=== PATIENT | female | born 1950 | race Caucasian/White ===

== ENCOUNTER → 2016-07-27 17:12 | Outpatient (CLI) | payer MEDICAID ==
[2016-04-28 10:48] VITALS: BMI 43.4
[~2016-07-27 17:12] MED LIST: ACTOS45 MG PO; ANTIVERT12.5 MG PO; CELEXA20 MG PO; DOXYCYCLINE HY100 M2 PO; FIORICET-COD 51 EACH PO; HYDROCODON-ACE1 EAC7 PO; HYDROCODONE-APA1 TAB PO; HYZAAR 50-12.51 TAB PO; JANUVIA100 MG PO; KEPPRA500 MG PO; LIPITOR20 MG PO; MOBIC7.5 MG PO; NEURONTIN 300300 MG PO; OMEPRAZOLE40 MG PO; ROBAXIN-750750 MG PO; TYLENOL W/CODEI1 TAB PO
== END | disposition home or self-care (01) ==
LOC: D.MAMMO 14:00
DX: N63 Unspecified lump in breast (principal)

== ENCOUNTER → 2016-08-03 09:15 | Outpatient (CLI) | payer MEDICAID ==
[2016-04-28 10:48] VITALS: BMI 43.4
== END | disposition home or self-care (01) ==
LOC: D.US 09:15
DX: N63 Unspecified lump in breast (principal)

== ENCOUNTER 2016-08-24 09:47 | Day surgery (SDC) | payer MEDICAID ==
[~2016-08-24] VITALS: Ht 157.5 cm; Wt 112.9 kg
[~2016-08-24 09:47] MED LIST changes: -DOXYCYCLINE HY100 M2 PO; -HYDROCODON-ACE1 EAC7 PO; -MOBIC7.5 MG PO
[2016-08-24 10:46] LABS: BASOPHILS 0.3 % (0.0-2.0); EOSINOPHILS 1.4 % (0-7); HEMATOCRIT 37.5 % (36.0-48.0); IMMATURE GRANULOCYTES 0.4 % (0-5); LYMPHOCYTES 41.6 % (15-50); MCH 28.8 pg (26.0-34.0); MCV 90.1 fL (80.0-100.0); MEAN PLATELET VOLUME 10.9 fL (7.4-10.4); MONOCYTES 5.1 % (2-11); NEUTROPHILS 51.2 % (40-80); PLATELET COUNT 278 10x3/uL (130-400); RBC 4.16 10x6/uL (4.00-5.40); RDW 13.4 % (11.5-14.5); WBC 12.4 10x3/uL (4.8-10.8)
[2016-08-24 10:51] LABS: CALC OSMOLALITY 281 mosm/kg (275-300); CALCIUM 8.7 mg/dL (8.5-10.1); CARBON DIOXIDE 33.1 mmol/L (21.0-32.0); CHLORIDE - SERUM 100 mmol/L (98-107); CREATININE - SERUM 0.8 mg/dL (0.6-1.3); GLUCOSE 173 mg/dL (74-106); SODIUM 137 mmol/L (136-145); UREA NITROGEN 24 mg/dL (7-18); eGFR NON AFRICAN AMERICAN 77 mL/min (90-120)
[2016-08-24] MEDS ORDERED: MOBIC7.5 MG PO (10:54)
[2016-08-24 10:57] VITALS: BP 142/72; Ht 157.5 cm; Wt 112.9 kg
[2016-08-24 10:57] LABS: INR 0.99 (0.85-1.17)
[2016-08-24] MEDS ORDERED: HYDROCODON-ACE1 EAC7 PO (12:57)
[2016-08-24] MEDS ORDERED: DOXYCYCLINE HY100 M2 PO (12:57)
--- NOTE | 2016-08-24 21:25 | OP ---
PATIENT NAME: DEEPTI KILGORE MEDICAL RECORD: [id number] :54 LOCATION:D.OPS ADMISSION DATE: SURGEON: MANDY DELANEY MD DATE OF OPERATION: 08/24/2016 SURGEON: Mandy Delaney MD PREOPERATIVE DIAGNOSIS: Left breast infiltrating ductal carcinoma. POSTOPERATIVE DIAGNOSIS: Left breast infiltrating ductal carcinoma. PROCEDURES PERFORMED: 1. Insertion of left subclavian tunneled PowerPort with subcutaneous port. 2. Immediate interpretation of fluoroscopy. ANESTHESIA: Total intravenous anesthesia. COMPLICATIONS: None. SPECIMENS: None. Case was clean. ESTIMATED BLOOD LOSS: 20 cc. OPERATIVE COURSE: After consent was obtained, the patient was taken to the operating room and placed in the supine position ____ total intravenous anesthesia was given. A timeout was taken to confirm the correct patient and procedure. The left breast, chest and neck were prepped and draped in typical sterile fashion. External landmarks were identified. A 30 cc of local anesthetic were injected in the left chest wall. The left subclavian vein was cannulated on the first pass. Under direct fluoroscopy, the was advanced to the atriocaval junction. The needle was removed. A stab incision was made with 11-blade scalpel. At this time, the chest wall incision was made with a 15 blade scalpel. Dissection continued to the level of the pectoralis fascia using electrocautery and blunt dissection. Once the pectoralis fascia was identified again, 10 cc of local anesthetic was administered. The port was tunneled from the skin incision to the needle stick site. At this time, the dilator and breakaway sheath were passed over the wire in standard Seldinger fashion under fluoroscopy. The wire and dilator were removed. The catheter was advanced to the breakaway sheath and advanced to the atriocaval junction under fluoroscopy. At this time, the catheter was secured to the PowerPort device. The port was fixated to the pectoralis fascia using interrupted 2-0 Prolene suture. The port was accessed, blood aspirated, it was then flushed with 30 cc of normal saline mixed with 5000 units of heparin. The wound was then copiously irrigated and suctioned. Subcutaneous tissue was closed with 3-0 Vicryl suture. The skin was closed with 4-0 Monocryl, Mastisol and Steri-Strips. The port was then accessed with the 1-1/2-inch Hand needle through the skin. Blood was aspirated, the port was then flushed. The sterile Tegaderm were placed over the access device and the incision. At the end of the case, all needle and instrument counts were correct. No complications occurred. The patient was transferred to the recovery room in satisfactory condition. TRANSINT:[id number] Voice Confirmation ID: [id number] DOCUMENT ID: [id number] OPERATIVE REPORT [id number] DEEPTI KILGORE,MANDY Oscar MD at 2125 CC: [id number] DICTATION DATE: 08/24/16 1254 GENERATING PLANT SUPERINTENDENT: 08/24/16 2020 [facility] 08/24/16 [id number] [place] [address]
== END 2016-08-24 14:20 | disposition home or self-care (01) ==
LOC: D.OPS 09:47
PROVIDERS: Anesthesiology
DX: C50.912 Malignant neoplasm of unspecified site of left female breast (principal)

== ENCOUNTER → 2016-09-01 08:57 | Outpatient (CLI) | payer MEDICAID ==
[2016-08-24 10:57] VITALS: BMI 45.6
[~2016-09-01 08:57] MED LIST changes: +DOXYCYCLINE HY100 M2 PO; +HYDROCODON-ACE1 EAC7 PO; +MOBIC7.5 MG PO
== END | disposition home or self-care (01) ==
LOC: D.NM 08:57
DX: C50.912 Malignant neoplasm of unspecified site of left female breast (principal)

== ENCOUNTER 2016-09-28 07:02 | Day surgery (SDC) | payer MEDICAID ==
[2016-09-27 15:11] LABS: BASOPHILS 0.2 % (0.0-2.0); EOSINOPHILS 2.3 % (0-7); HEMATOCRIT 37.7 % (36.0-48.0); HEMOGLOBIN 11.9 g/dL (12-16); IMMATURE GRANULOCYTES 0.4 % (0-5); LYMPHOCYTES 38.3 % (15-50); MCHC 31.6 g/dL (31.0-37.0); MCV 91.7 fL (80.0-100.0); MEAN PLATELET VOLUME 11.6 fL (7.4-10.4); NEUTROPHILS 52.8 % (40-80); PLATELET COUNT 269 10x3/uL (130-400); RBC 4.11 10x6/uL (4.00-5.40); RDW 13.7 % (11.5-14.5); WBC 10.2 10x3/uL (4.8-10.8)
[2016-09-27 15:24] LABS: CALC OSMOLALITY 280 mosm/kg (275-300); CALCIUM 8.5 mg/dL (8.5-10.1); CARBON DIOXIDE 32.3 mmol/L (21.0-32.0); CHLORIDE - SERUM 101 mmol/L (98-107); CREATININE - SERUM 0.7 mg/dL (0.6-1.3); GLUCOSE 151 mg/dL (74-106); POTASSIUM - SERUM 4.7 mmol/L (3.5-5.1); SODIUM 138 mmol/L (136-145); UREA NITROGEN 19 mg/dL (7-18); eGFR NON AFRICAN AMERICAN 89 mL/min (90-120)
[~2016-09-28] VITALS: Ht 157.5 cm; Wt 111.4 kg
[~2016-09-28 07:02] MED LIST changes: +ACTOS30 MG PO; -ACTOS45 MG PO; +LIPITOR10 MG PO; -LIPITOR20 MG PO
[2016-09-28 07:42] VITALS: BP 147/88; BMI 44.9
--- NOTE | 2016-09-28 08:12 | NUR ---
0812 CALLED DALIA RECEIVED SMALL AMT OF BLOOD FROM IV TOLD HER WASNT SURE IF IT WAS ENOUGH BLOOD OE HENOLYZED AND MAY NEED TO DRAW BLOOD.
--- NOTE | 2016-09-28 14:02 | NUR ---
REPORT GIVEN TO JEREMIAH LADD RN WHO IS TAKING OVER CASE.
[2016-09-28] MEDS ORDERED: HYDROCODON-ACE1 EAC7 PO (14:28)
[2016-09-28 16:21] VITALS: BP 129/54; Ht 157.5 cm; Wt 111.4 kg
--- NOTE | 2016-09-28 16:43 | NUR ---
pt recieved from pacu per bed. oxygen on room air at 88%-oxygen at 2L per nc with sat of 94-95%. lungs clear bilat. nola wrap noted to chest with 4x4s underneath on left chest. box alarm applied due to fall risk score. call light in reach. family at bedside.
--- NOTE | 2016-09-28 19:00 | NUR ---
BEDSIDE REPORT RECEIVED AND CARE OF PT ASSUMED. PT LYING IN SEMI VALENZUELA'S POSITION WITH EYES CLOSED AND UNLABORED BREATHING. O2 IN USE AT 4L VIA NC AND SPO2 98% AT THIS TIME. IV IN RIGHT FA PATENT WITH NS INFUSING AT 75 ML / HR. WILL MONITOR CLOSEY FOR NEEDS.
[2016-09-28 20:00] VITALS: BP 141/71
--- NOTE | 2016-09-28 21:08 | NUR ---
HS MEDICATIONS GIVEN. PT STILL SLEEPY, BUT AWOKE TO VOICE AND SWALLOWED MEDICATIONS WITH SIPS OF WATER WITHOUT DIFFICULTY. WILL CONTINUE TO MONITOR FOR NEEDS. CALL LIGHT WITHIN REACH.
--- NOTE | 2016-09-28 21:50 | OP ---
PATIENT NAME: DEEPTI KILGORE MEDICAL RECORD: [id number] :54 LOCATION:D.MS [facility] ADMISSION DATE: SURGEON: MANDY DUMAS MD DATE OF OPERATION: 09/28/2016 SURGEON: Mandy Dumas MD. PREOPERATIVE DIAGNOSIS: Infiltrating ductal carcinoma of the left breast. POSTOPERATIVE DIAGNOSIS: Infiltrating ductal carcinoma of the left breast. PROCEDURES PERFORMED: 1. Left breast partial lumpectomy. 2. [place] lymph node biopsy. SPECIMENS: Left breast lumpectomy specimen size 6 cm in length, ____ cm in width, 10 cm in depth. SPECIMENS: Two additional inferior margin of left breast 4 x 4 x 4 and three left sentinel lymph node excisional biopsy. ANESTHESIA: General. COMPLICATIONS: None. ESTIMATED BLOOD LOSS: 70 cc. Case was clean. OPERATIVE COURSE: The patient was brought in to the hospital early this morning, sterotactic wire-guided placement was performed. The patient was also given preoperative lymphoscintigraphy. Thereafter, consent was obtained, the patient was taken to the operating room and placed in a supine position on the operating table. Next, general anesthesia was given via endotracheal intubation. Next, a timeout was taken to confirm the correct patient and procedure. The left breast and axilla were prepped and draped in typical sterile fashion. The needle was identified in the left upper outer quadrant; it is approximately in 2 o'clock position. Local anesthetic was injected. Lymphazurin blue dye was injected in the subareolar region. An elliptical incision was made around the guidewire approximately 6 cm in length, 1 cm in width and dissection continued with combination of electrocautery and sharp scissor dissection taking the grossly abnormal tissue as well as the tissue encompassing in the wire from the left breast. The specimen was removed and sent for mammographic confirmation. Additional gross disease was noted of what was the inferior margin. Again, dissection was performed, sharp scissor dissection and this was sent for again mammographic confirmation. A third specimen was sent for permanent pathology. The wound was copiously irrigated and suctioned. Pressure dressing was applied while we waited on mammographic confirmation. Local anesthetic was injected to the left axilla and standard incision was made. Dissection continued with Metzenbaum scissors. Self-retaining retractors were placed. The sentinel lymph node cluster was identified visually with Blue dye as well as confirmation with the radioactive Jerry counter. The 2 nodes that were identified were circumferentially dissected and sent for permanent pathology. The axilla was marked with clips at the site of the lymph node biopsy. The axilla was copiously irrigated and OPERATIVE REPORT [id number] MAGUIDEEPTI ERIC suctioned. Careful attention was paid to hemostasis, which was obtained with a combination of electrocautery and silk sutures. Rashel was applied. The deep subQ was closed with 3-0 Vicryl. The superficial subQ was closed with 3-0 Vicryl. The skin was closed with 4-0 Stratafix, Mastisol and Steri-Strips. At this time, we received mammographic confirmation of the left breast lumpectomy specimen. The pressure dressing was removed. The wound was copiously irrigated and suctioned. Hemostasis was obtained with electrocautery as well as Vicryl suture. The area of dissection was marked with again a 5-mm clip groover and striper operator. Rashel was applied. The wound was closed, deep subcutaneous layer was closed with 3-0 Vicryl sutures, superficial tissue was closed with 3-0 Vicryl suture. The skin was closed with 4-0 Stratafix, Mastisol and Steri-Strips. At the end of the case, a pressure dressing was applied to the left breast and axilla as well as an David wrap. At the end of the case, all needle and instrument counts were correct. No complications occurred. The patient was extubated and transferred to the PACU in stable condition. TRANSINT:[id number] Voice Confirmation ID: [id number] DOCUMENT ID: [id number] MANDY DUMAS MD at 2150 CC: [id number] DICTATION DATE: 09/28/161426 ULTRASOUND TECHNOLOGIST SONOGRAPHER: 09/28/162113 [facility] [address] [place] [address]
--- NOTE | 2016-09-28 22:30 | NUR ---
PT VOIDED 300 ML OF YELLOW URINE. WALKED TO RESTROOM WITH STAND-BY ASSIST. WILL CONTINUE TO MONITOR FOR NEEDS.
[2016-09-29] VITALS: BP 141/71
--- NOTE | 2016-09-29 00:40 | NUR ---
PT C/O PAIN AT LEVEL 8/10 IN LEFT CHEST AND BACK AREA. GAVE NORCO 5/325 X2 PO PER PRN ORDER. WILL MONITOR FOR EFFECTIVENESS. SIDE RAILS UP X2 FOR SAFETY. FAMILY MEMBER IS AT BEDSIDE.
[2016-09-29 04:00] VITALS: BP 126/71
[2016-09-29 07:50] VITALS: BP 136/70
--- NOTE | 2016-09-29 10:56 | NUR ---
PT SEEN EARILER AND ASSESSED. NO COMPLAINTS AT PRESENT DUE TO PAIN PILLS GIVEN AT 0545. DRESSING NOTED TO LEFT CHEST CLEAN DRY AND INTACT. CHEST WRAPPED WITH NORMAN WRAP. OXYGEN AT 2L NC WITH SAT OF 97%-TURNED OFF TO ARRANGE FOR DISCHARGE LATER TODAY. WILL MONITOR CLOSELY. LEGS BILAT LOWER WITH 1+ EDEMA-PT STATES THIS IS NORMAL FOR HER. CALL LIGHT IN REACH
== END 2016-09-29 14:59 | disposition home or self-care (01) ==
LOC: D.OPS 07:02 → D.MS 07:02 → D.PAN 07:30 → D.NM 07:30 → D.MS 15:54 → D.OPS 09-29 14:59
PROVIDERS: Anesthesiology
DX: C50.412 Malignant neoplasm of upper-outer quadrant of left female breast (principal); C77.3 Secondary and unspecified malignant neoplasm of axilla and upper limb lymph nodes; Z17.0 Estrogen receptor positive status [ER+]

== ENCOUNTER 2016-10-19 05:16 | Inpatient (IN) | payer MEDICAID ==
[2016-10-18 11:34] LABS: BASOPHILS 0.1 % (0-2); EOSINOPHILS 1.3 % (0-7); HEMOGLOBIN 12.4 g/dL (12-16); IMMATURE GRANULOCYTES 0.5 % (0-5); LYMPHOCYTES 32.5 % (15-50); MCH 29.6 pg (26.0-34.0); MCHC 32.6 g/dL (31.0-37.0); MCV 90.7 fL (80.0-100.0); MEAN PLATELET VOLUME 10.4 fL (7.4-10.4); NEUTROPHILS 58.6 % (40-80); PLATELET COUNT 295 10x3/uL (130-400); RBC 4.19 10x6/uL (4.00-5.40); RDW 13.6 % (11.5-14.5); WBC 14.6 10x3/uL (4.8-10.8)
[2016-10-18 11:51] LABS: INR 0.95 (0.85-1.17); PROTIME 12.5 SECONDS (11.6-15.0)
[2016-10-18 11:55] LABS: ANION GAP 10.8 mmol/L (8-16); CALCIUM 8.8 mg/dL (8.5-10.1); CARBON DIOXIDE 30.2 mmol/L (21.0-32.0); CREATININE - SERUM 0.9 mg/dL (0.6-1.3)
[2016-10-18 12:26] LABS: APTT 20.4 SECONDS (22.8-39.4)
[~2016-10-19] VITALS: Ht 154.9 cm; Wt 113.6 kg
[~2016-10-19 05:16] MED LIST changes: -ACTOS30 MG PO; +ACTOS45 MG PO; -LIPITOR10 MG PO; +LIPITOR20 MG PO
[2016-10-19 09:03] VITALS: BMI 49.0
--- NOTE | 2016-10-19 14:11 | NUR ---
1333: UNABLE TO REACH FAMILY EXT [phone] NO ANSWER
[2016-10-19 15:53] VITALS: BP 117/70
[2016-10-19 19:42] VITALS: BP 100/56; Ht 154.9 cm; Wt 113.6 kg
[2016-10-19 20:02] VITALS: BP 100/56
--- NOTE | 2016-10-19 21:56 | NUR ---
REC'D PATIENT LYING IN BED. ALERT AND ORIENTED X4. DENIED PAIN AT THIS TIME. DENIED FURTHER NEEDS AT THIS TIME. WILL ADMISTER MEDS PRESCRIBED. WILL CONT TO MONITOR. NO DISTRESS NOTED. BED LOW, LOCKED, CALL LIGHT IN REACH.
--- NOTE | 2016-10-19 22:28 | NUR ---
PATIENT RESTING IN BED WITH EYES CLOSED. RR EVEN AND UNLABORED. 02 @ 2L VIA NC. 0 S/S OF DISTRESS. HOB 20 DEGREES. AAOX4. STATES PAIN IS A 2/10. DRESSING TO LEFT CHEST CDI. SCD'S ON. SRX2. BED LOW. CALL LIGHT WITHIN REACH.
[2016-10-19 23:48] VITALS: BP 109/67
--- NOTE | 2016-10-20 00:34 | NUR ---
PATIENT IS RESTING. NO DISTRESS NOTED. SON IS AT BEDSIDE.PT IS REQUESTING SOMETHING FOR PAIN. WILL ADMINISTER MEDS PRESCRIBED. INSTRUCTED TO CALL IF NEEDED ANYTHING. BED LOW, LOCKED, CALL LIGHT IN REACH.
[2016-10-20 04:00] VITALS: BP 114/63
[2016-10-20 04:03] VITALS: BP 114/63
[2016-10-20 05:35] LABS: BASOPHILS 0.2 % (0-2); HEMATOCRIT 33.8 % (36.0-48.0); HEMOGLOBIN 10.2 g/dL (12-16); IMMATURE GRANULOCYTES 0.3 % (0-5); LYMPHOCYTES 31.8 % (15-50); MCH 28.2 pg (26.0-34.0); MCHC 30.2 g/dL (31.0-37.0); MEAN PLATELET VOLUME 10.4 fL (7.4-10.4); MONOCYTES 6.9 % (2-11); NEUTROPHILS 59.8 % (40-80); PLATELET COUNT 288 10x3/uL (130-400); RBC 3.62 10x6/uL (4.00-5.40); RDW 13.6 % (11.5-14.5)
[2016-10-20 05:41] LABS: MCV 93.4 fL (80.0-100.0); WBC 10.5 10x3/uL (4.8-10.8)
[2016-10-20 06:02] LABS: CALC OSMOLALITY 284 mosm/kg (275-300); CALCIUM 8.4 mg/dL (8.5-10.1); CARBON DIOXIDE 33.1 mmol/L (21.0-32.0); CHLORIDE - SERUM 103 mmol/L (98-107); CREATININE - SERUM 0.8 mg/dL (0.6-1.3); GLUCOSE 213 mg/dL (74-106); MAGNESIUM - SERUM 2.1 mg/dL (1.8-2.4); POTASSIUM - SERUM 4.2 mmol/L (3.5-5.1); SODIUM 138 mmol/L (136-145); UREA NITROGEN 21 mg/dL (7-18); eGFR NON AFRICAN AMERICAN 76 mL/min (90-120)
--- NOTE | 2016-10-20 06:08 | NUR ---
PATIENT IS RESTING IN BED. NO DISTRESS NOTED. COULD NOT DRAW BLOOD FROM PORT SITE TODAY. PORT SITE IS FLUSHING WITH OUT A PROBLEM. DENIED ANY FURTHER NEEDS INTRUCTED TO CALL IF NEEDED ANYTHING. SON IS AT BEDSIDE. BED LOW, LOCKED, CALL LIGHT IN REACH.
--- NOTE | 2016-10-20 07:30 | NUR ---
AWAKE AND ALERT. C/O PAIN TO PORT SITE AND LEFT BREAST. REQUESTED AND GIVNE 2MG MORPHHINE SLOW IVP FOR SAME. WILL MONITOR.
[2016-10-20 08:21] VITALS: BP 127/59
--- NOTE | 2016-10-20 08:22 | OP ---
PATIENT NAME: DEEPTI KILGORE MEDICAL RECORD: [id number] :54 LOCATION:D.MS [facility] ADMISSION DATE:10/19/16 SURGEON: MANDY DELANEY MD DATE OF OPERATION: 10/19/2016 SURGEON: Mandy Delaney MD. PREOPERATIVE DIAGNOSES: 1. Infiltrating malignant neoplasm of the left breast. 2. Left breast subcutaneous abscess with cellulitis. POSTOPERATIVE DIAGNOSES: 1. Infiltrating malignant neoplasm of the left breast. 2. Left breast subcutaneous abscess with cellulitis. PROCEDURE PERFORMED: 1. Incision and drainage of left breast abscess. 2. Removal of left subclavian PowerPort. 3. Placement of a right subclavian PowerPort. 4. Immediate interpretation of fluoroscopy. ANESTHESIA: General. COMPLICATIONS: None. SPECIMENS: None. Case was grossly contaminated. ESTIMATED BLOOD LOSS: 20 cc. OPERATIVE COURSE: After consent was obtained, the patient was taken to the operating room and placed in the supine position on the operating table. Next, general anesthesia was given via endotracheal intubation after a timeout was performed to confirm the correct patient and procedure. Thereafter, the left and right chest were prepped and draped in the typical sterile fashion. Local anesthetic was administered. The patient's previous left breast lumpectomy site felt mildly fluctuant. The incision was incised and approximately 150 cc of rodriguez purulent material were expressed from the wound. Anaerobic and aerobic cultures were sent at this time. The wound was then copiously irrigated and suctioned. Repeat irrigation and suction was performed with hydrogen peroxide. The wound was then packed with Kerlix soaked in Betadine and hydrogen peroxide. Previous incision over the left subclavian PowerPort was incised and administered local anesthetic. Dissection continued on the level of the port using electrocautery. The port was identified. Previous Prolene sutures were cut. The port and the catheter were removed in its entirety. The wound was copiously irrigated and suctioned. Again, it was packed with Kerlix soaked in peroxide and Betadine. The wounds were covered with sterile gauze dressings. All dressings were removed. The patient's right chest was prepped and draped in typical sterile fashion. Local anesthetic was injected into the right anterior chest wall. The right subclavian vein was scanned on the first pass. Under fluoroscopic guidance, a guidewire was passed through the needle and into the atriocaval junction. The needle was removed. Skin incision was made with a 15 blade scalpel. The dilator and breakaway sheath were passed over the guidewire in standard Seldinger fashion, again under fluoroscopic guidance. A skin incision OPERATIVE REPORT [id number] DEEPTI KILGORE was then made in the right chest wall. Dissection continued to the level of the pectoralis fascia. Dissection continued to above the pectoralis fascia using electrocautery. A pocket was created for the port. The tunneler device was then used to tunnel the catheter from the skin incision to the needle stick site. The catheter was connected to the port. The port was secured to the anterior abdominal chest wall. Catheter was cut to length. The catheter was then passed through the dilator and guidewire removed. The catheter was passed through the breakaway sheath under fluoroscopic guidance at the atriocaval junction, at which time the breakaway sheath was removed. The port was then accessed. Blood was immediately aspirated. It was then flushed with 5000 units of heparin mixed with 30 cc of saline. The wound was irrigated and suctioned. Subcutaneous tissue was closed with 3-0 Vicryl suture and skin was closed with a 4-0 Stratafix, Mastisol and Steri-Strips. After the Mastisol and Steri-Strips were placed, a Tegaderm dressing was placed. The port was accessed. Blood was aspirated. It was then flushed with 20 cc of normal saline. At the end of the case, all needle and instrument counts were correct. No complications occurred. The patient ____ the port access. The patient was transferred to the PACU in stable condition. TRANSINT:[id number] Voice Confirmation ID: [id number] DOCUMENT ID: [id number] MANDY DELANEY MD at 0822 CC: [id number] DICTATION DATE: 10/19/16 1457 ALLERGIST/PEDIATRIC PULMONOLOGIST: 10/19/162235 [place] [address]
--- NOTE | 2016-10-20 10:18 | NUR ---
AWAKE AND ALERT. ORIENTED X3. NO C/O AT THIS TIME. LUNGS ARE CLEAR BILATERALLY, OCCASSIONAL DRY COUGH NOTED. SKIN IS INTACT WITHOUT REDNESS EXCEPT WOUNDS TO LEFT BREAST WHICH HAS A DRY INTACT DRESSING IN PLACE. PORT TO CENTER OF CHEST IS PATENT WITHOUT REDNESS AT INSERTION SITE. DENIES NEEDS.
[2016-10-20 12:46] VITALS: BP 128/76
[2016-10-20 16:47] VITALS: BP 95/52
--- NOTE | 2016-10-20 19:31 | NUR ---
ATE MOST OF SUPPER. PORT IS BEEPING OCCLUDED. WORKS WHEN PRESSURE APPLIED TO PORT. PRESSURE DRESSING APPLIED TO AREA. WILL MONITOR.
[2016-10-20 20:00] VITALS: BP 116/61
[2016-10-21] VITALS (11 sets, daily range): BP systolic 111–158; BP diastolic 59–88
--- NOTE | 2016-10-21 01:03 | NUR ---
ASSESSED AT THE BEGINNING OF THE SHIFT. PT IS ALERT AND ORIENTED, ABLE TO VERBALIZE NEEDS. LEFT BREAST HAS TWO INCISIONS THAT ARE DRESSED AND DRY. SHE HAS O2 AT 2 LITERS AND MORPHINE EVERY 4 HRS NEEDED. HER BLOOD SUGAR WAS 167 AND SHE IS AWARE THAT SHE IS NPO AFTER MINDNIGHT FOR AM SURGERY.
[2016-10-21 06:53] LABS: BASOPHILS 0.2 % (0-2); EOSINOPHILS 2.8 % (0-7); HEMOGLOBIN 9.2 g/dL (12-16); IMMATURE GRANULOCYTES 0.2 % (0-5); LYMPHOCYTES 35.9 % (15-50); MCH 28.7 pg (26.0-34.0); MCHC 30.7 g/dL (31.0-37.0); MCV 93.5 fL (80.0-100.0); MEAN PLATELET VOLUME 10.7 fL (7.4-10.4); MONOCYTES 6.9 % (2-11); PLATELET COUNT 250 10x3/uL (130-400); RBC 3.21 10x6/uL (4.00-5.40); RDW 13.9 % (11.5-14.5); WBC 9.1 10x3/uL (4.8-10.8)
[2016-10-21 07:10] LABS: CALC OSMOLALITY 279 mosm/kg (275-300); CALCIUM 7.9 mg/dL (8.5-10.1); CARBON DIOXIDE 30.1 mmol/L (21.0-32.0); CHLORIDE - SERUM 102 mmol/L (98-107); CREATININE - SERUM 0.7 mg/dL (0.6-1.3); GLUCOSE 178 mg/dL (74-106); MAGNESIUM - SERUM 1.6 mg/dL (1.8-2.4); POTASSIUM - SERUM 4.1 mmol/L (3.5-5.1); SODIUM 137 mmol/L (136-145); UREA NITROGEN 17 mg/dL (7-18); eGFR NON AFRICAN AMERICAN 89 mL/min (90-120)
--- NOTE | 2016-10-21 07:45 | NUR ---
AWAKE AND ALERT. ORIENTED X3. C/O PAIN TO LEFT BREAST LEVEL 9. REQUESTED AND GIVEN 2MG MORPHINE SLOW IVP FOR SAME. WILL MONITOR. LUNGS ARE CLEAR BILATERALLY, NO COUGH NOTED. ENCOURAGED TO USE IS. SKIN IS INTACT WITHOUT REDNESS EXCEPT INCISIONS TO LEFT BREAST WHICH HAVE A DRY INTACT DRESSING IN PLACE. NPO THIS AM FOR SURGERY.
--- NOTE | 2016-10-21 18:08 | NUR ---
CM: Information obtained from daughter Ciara Cole. Patient lives with S/O Jose Dozier in their mobile home. 3-4 [address] going into front of home. PCP: Unknown per daughter. Pharmacy: Unknown per daughter. Emergency contact: Jose Dozier #[phone], Adan Chavez #[phone]. HHS: None at this time. Would benefit upon discharge. DME: None. Transportation: Adan Lozada will drive patient home. Has patient been hospitalized in past 30 days? No. Can patient safely return to preadmission environment? Yes.
--- NOTE | 2016-10-21 20:04 | NUR ---
IV SITED TO LEFT FOREARM AFTER ONE ATTEMPT WITH 22G. OLD IV CONVERTED TO SL IN LEFT AC. NO CHANGES NOTED. DENIES NEEDS.
[2016-10-22] VITALS: BP 145/64
[2016-10-22 04:00] VITALS: BP 130/64
[2016-10-22 06:55] LABS: BASOPHILS 0.1 % (0-2); EOSINOPHILS 0.3 % (0-7); HEMATOCRIT 29.9 % (36.0-48.0); HEMOGLOBIN 8.9 g/dL (12-16); IMMATURE GRANULOCYTES 0.3 % (0-5); MCH 28.3 pg (26.0-34.0); MCHC 29.8 g/dL (31.0-37.0); MCV 94.9 fL (80.0-100.0); MONOCYTES 7.6 % (2-11); NEUTROPHILS 66.7 % (40-80); PLATELET COUNT 293 10x3/uL (130-400); RBC 3.15 10x6/uL (4.00-5.40); RDW 13.7 % (11.5-14.5); WBC 13.5 10x3/uL (4.8-10.8)
[2016-10-22 07:04] LABS: CALC OSMOLALITY 277 mosm/kg (275-300); CALCIUM 8.4 mg/dL (8.5-10.1); CARBON DIOXIDE 35.6 mmol/L (21.0-32.0); CHLORIDE - SERUM 103 mmol/L (98-107); CREATININE - SERUM 0.6 mg/dL (0.6-1.3); GLUCOSE 139 mg/dL (74-106); MAGNESIUM - SERUM 1.9 mg/dL (1.8-2.4); POTASSIUM - SERUM 4.6 mmol/L (3.5-5.1); SODIUM 138 mmol/L (136-145); UREA NITROGEN 13 mg/dL (7-18); eGFR NON AFRICAN AMERICAN > 90 mL/min (90-120)
--- NOTE | 2016-10-22 07:47 | OP ---
PATIENT NAME: DEEPTI KILGORE MEDICAL RECORD: [id number] :54 LOCATION:D.MS [facility] ADMISSION DATE:10/19/16 SURGEON: MANDY DELANEY MD DATE OF OPERATION: 10/21/2016 SURGEON: Mandy Delaney MD PREOPERATIVE DIAGNOSES: Malignant neoplasm of the left breast infiltrating ductal carcinoma. POSTOPERATIVE DIAGNOSES: Malignant neoplasm of the left breast infiltrating ductal carcinoma. PROCEDURE PERFORMED: Left mastectomy. ANESTHESIA: General. COMPLICATIONS: None. SPECIMENS: Left mastectomy. ESTIMATED BLOOD LOSS: 150 cc. COMPLICATIONS: None. Case was contaminated. OPERATIVE COURSE: After consent was obtained, the patient was taken to the operating room and placed in the supine position on the operative table. Next, general anesthesia was given via endotracheal intubation after a timeout was performed that confirmed the correct patient and procedure. Ellipse was marked from the sternum to the lateral to the anterior axillary line including the breast. The elliptical skin incision was then made with a 10-blade scalpel. Next, Allis clamps were placed in the posterior breast and elevated. The mammary tissue was dissected down the level of the inframammary crease inferiorly. It was dissected down the level of the sternal notch medially. Allis retractors were then placed in the upper skin flap. Dissection continued onto the level of the sternum and into the axillary tail. Once this was complete, the breast tissue was taken off the external oblique fascia with the electrocautery. The dissection continued to include all the mammary tissue in the anterior axillary space. Once the breast was removed, A long lateral suture was placed. The short medial suture was placed, an additional specimen in the axillary tail was sent for permanent pathology. Once this was complete, the main area of mastectomy was grossly irrigated and suctioned. Careful attention was paid to hemostasis, which was obtained with the use of 3-0 silk sutures, surgical clips and electrocautery. Confirmed, there was no additional bleeding. Rashel was applied to the surgical pad, 2 ARABELLA drains were placed into the drain and pulled out through the axillary incision in the axillary line. The subcutaneous tissue was reapproximated using 2-0 silk suture. The dermis was reapproximated using 3-0 Vicryl suture. The skin was closed with sivan. The old port site was packed with gauze and covered with Tegaderm dressing. The ARABELAL drains were placed to suction and Tegaderm dressings were placed through the incision and the chest was wrapped with sterile gauze and an David wrap. At the end of the case, all needle and sponge counts were correct. No complications occurred. The patient was extubated and transferred to the PACU in stable OPERATIVE REPORT [id number] MAGUIDEEPTI REYES condition. TRANSINT:[id number] Voice Confirmation ID: [id number] DOCUMENT ID: [id number] MANDY DELANEY MD at 0747 CC: [id number] DICTATION DATE: 10/21/16 1445 [facility] DIRECTOR: 10/21/16 2340 ADM IN [facility] [address] [id number]
--- NOTE | 2016-10-22 09:12 | NUR ---
PATIENT IS AWAKE, ALERT, AND ORIENTED X4. SCHEDULED MORNING MEDICATIONS GIVEN TO PATIENT. PATIENT TOLERATED WELL. PATIENT DENIES ANY NEEDS AT PRESENT TIME. CALL LIGHT IN PATIENT'S REACH. WILL MONITOR.
[2016-10-22 09:57] VITALS: BP 125/65
[2016-10-22 11:56] VITALS: BP 124/80
--- NOTE | 2016-10-22 16:03 | NUR ---
PATIENT COMPLAINS FO PAIN IN HER BREAST/CHEST AREA. PATIENT RATES PAIN LEVEL A "10" ON A 0-10 SCALE. PRN HYDROCODONE GIVEN TO PATIENT FOR PAIN. PATIENT TOLERATED WELL. PATIENT DENIES ANY FURTHER NEEDS. CALL LIGHT IN PATIENT'S REACH.. WILL MONITOR.
[2016-10-22 16:32] VITALS: BP 124/78
--- NOTE | 2016-10-22 19:50 | NUR ---
PT. IN BED WITH HOB UP FOR COMFORT. 2 ARABELLA DRAINS COMPRESSED AND WITHOUT PROBLEMS. ASSESSMENT COMPLETED. CALL LIGHT WITHIN REACH.
[2016-10-22 20:00] VITALS: BP 121/70
--- NOTE | 2016-10-22 23:07 | NUR ---
PT. IN BED WITH HOB UP FOR COMFORT AND NOW HAS A FAN THAT IS BLOWING ON HER DUE TO ROOM AIR CONDITIONING PROBLEM. EYES CLOSED AND RESP. DEEP AND EVEN. CALL LIGHT WITHIN REACH.
--- NOTE | 2016-10-23 03:14 | NUR ---
PT. IN BED WITH HOB UP SLIGHTLY WITH EYES CLOSED AND RESP. EVEN. IV INFUSING VIA PUMP WITHOUT ALARMS AND CALL LIGHT IS WITHIN REACH.
[2016-10-23 04:00] VITALS: BP 150/70
[2016-10-23 04:54] LABS: BASOPHILS 0.1 % (0-2); EOSINOPHILS 2.4 % (0-7); HEMATOCRIT 26.2 % (36.0-48.0); HEMOGLOBIN 7.9 g/dL (12-16); IMMATURE GRANULOCYTES 0.3 % (0-5); LYMPHOCYTES 30.9 % (15-50); MCH 28.1 pg (26.0-34.0); MCHC 30.2 g/dL (31.0-37.0); MCV 93.2 fL (80.0-100.0); MEAN PLATELET VOLUME 10.2 fL (7.4-10.4); NEUTROPHILS 58.3 % (40-80); PLATELET COUNT 265 10x3/uL (130-400); RBC 2.81 10x6/uL (4.00-5.40); RDW 13.3 % (11.5-14.5); WBC 10.2 10x3/uL (4.8-10.8)
[2016-10-23 05:08] LABS: CALC OSMOLALITY 280 mosm/kg (275-300); CALCIUM 8.3 mg/dL (8.5-10.1); CARBON DIOXIDE 35.4 mmol/L (21.0-32.0); CHLORIDE - SERUM 104 mmol/L (98-107); CREATININE - SERUM 0.6 mg/dL (0.6-1.3); GLUCOSE 125 mg/dL (74-106); SODIUM 140 mmol/L (136-145); UREA NITROGEN 14 mg/dL (7-18); eGFR NON AFRICAN AMERICAN > 90 mL/min (90-120)
[2016-10-23 05:10] LABS: POTASSIUM - SERUM 3.7 mmol/L (3.5-5.1)
[2016-10-23 07:00] VITALS: BP 165/84
--- NOTE | 2016-10-23 07:16 | NUR ---
PATIENT IS RESTING IN BED WITH HER EYES CLOSED. PATIENT AWAKENS TO VERBAL STIMULI. PATIENT DENIES ANY NEEDS AT PRESENT TIME. CALL LIGHT IN PATIENT'S REACH. WILL MONITOR PATIENT.
--- NOTE | 2016-10-23 08:05 | NUR ---
PATIENT IS RESTING QUIETLY IN THE BED WITH HER EYES CLOSED. PATIENT AWAKENS TO VERBAL STIMULI. SCHEDULED MORNING MEDICATIONS GIVEN TO PATIENT. PATIENT TOLERATED WELL. ASSESSMENT COMPLETED. SEE FLOWSHEET FOR ANY DETAILS. PATIENT COMPLAINS OF PAIN IN HER LEFT CHEST/BREAST AREA FROM HER SURGERY. PATIENT RATES HER PAIN LEVEL A "7" ON A 0-10 SCALE. PRN HYDROCODONE GIVEN TO PATIENT FOR PAIN. PATIENT TOLERATED WELL. PATIENT DENIES ANY FURTHER NEEDS. CALL LIGHT IN PATIENT'S REACH. WILL MONITOR PATIENT.
[2016-10-23 12:32] VITALS: BP 115/59
[2016-10-23 14:57] VITALS: BP 120/64
--- NOTE | 2016-10-23 18:40 | NUR ---
PATIENT RESTING IN HER BED. PATIENT COMPLAINS OF PAIN IN HER RIGHT CHEST/BREAST AREA. PATIENT RATES HER PAIN LEVEL A "7" ON A 0-10 SCALE. PRN HYDROCODONE GIVEN TO PATIENT FOR PAIN CONTROL. PATIENT TOLERATED WELL. PATIENT DENIES ANY FURTHER NEEDS. CALL LIGHT IN PATIENT'S REACH. WILL MONITOR.
--- NOTE | 2016-10-23 19:25 | NUR ---
RECIEVED SHIFT REPORT. PT IS LYING IN BED. ALERT AND ORIENTED AND ABLE TO VERBALIZE NEEDS. IV IS PATENT AND FLUIDS ARE RUNNING PER ORDER. PT IS AMBULATORY BUT WAS INSTRUCTED TO CALL FOR ANY ASSISTANCE NEEDED. SCD'S ON. INCISION TO LEFT BREAST C/D/I. ARABELLA DRAINS PATENT WITH SITES C/D AND COMPRESSED. PT DENIES ANY PAIN AT THIS TIME. NO NEEDS ARE VERBALIZED AT THIS TIME. WILL CONTINUE TO MONITOR. SIDE RAILS ARE UP X 2. BED IS IN LOWEST POSITION. CALL LIGHT IS WITHIN REACH.
[2016-10-23 20:00] VITALS: BP 144/76
--- NOTE | 2016-10-23 20:55 | NUR ---
SHIFT ASSESSMENT COMPLETED. NIGHT MEDS GIVEN WITH NO PROBLEMS. PT RECIEVED 2 UNITS INSULIN PER SLIDING SCALE FOR AEUR=591. NO NEEDS ARE VOICED AT THIS TIME. WILL MONITOR. SIDE RAILS X 2. BED LOW. CALL LIGHT IN REACH.
[2016-10-24] VITALS: BP 141/71
[2016-10-24 04:00] VITALS: BP 145/76
[2016-10-24 06:22] LABS: BASOPHILS 0.3 % (0-2); HEMATOCRIT 25.2 % (36.0-48.0); HEMOGLOBIN 7.8 g/dL (12-16); IMMATURE GRANULOCYTES 0.4 % (0-5); LYMPHOCYTES 35.1 % (15-50); MCH 28.4 pg (26.0-34.0); MCV 91.6 fL (80.0-100.0); MEAN PLATELET VOLUME 10.4 fL (7.4-10.4); MONOCYTES 7.7 % (2-11); NEUTROPHILS 53.5 % (40-80); PLATELET COUNT 273 10x3/uL (130-400); RBC 2.75 10x6/uL (4.00-5.40); RDW 13.6 % (11.5-14.5); WBC 7.9 10x3/uL (4.8-10.8)
[2016-10-24 06:59] LABS: CALC OSMOLALITY 281 mosm/kg (275-300); CALCIUM 8.4 mg/dL (8.5-10.1); CARBON DIOXIDE 31.6 mmol/L (21.0-32.0); CHLORIDE - SERUM 103 mmol/L (98-107); CREATININE - SERUM 0.5 mg/dL (0.6-1.3); GLUCOSE 122 mg/dL (74-106); MAGNESIUM - SERUM 2.1 mg/dL (1.8-2.4); POTASSIUM - SERUM 3.7 mmol/L (3.5-5.1); SODIUM 141 mmol/L (136-145); UREA NITROGEN 13 mg/dL (7-18); VANCOMYCIN - TROUGH 18.2 ug/mL (10.0-20.0); eGFR NON AFRICAN AMERICAN > 90 mL/min (90-120)
[2016-10-24 08:23] VITALS: BP 162/58
[2016-10-24] MEDS ORDERED: OXYCODONE HCL5 MG PO (08:25)
[2016-10-24] MEDS ORDERED: KEFLEX500 MG PO (08:25)
--- NOTE | 2016-10-24 08:30 | NUR ---
ADMINISTERED MORNING MEDICATIONS. PT IN BED, DENIES ANY NEEDS AT THIS TIME. CALL LIGHT IN REACH, NAD NOTED WILL CONTINUE TO MONITOR.
--- NOTE | 2016-10-24 08:58 | NUR ---
ADMINISTERED NORCO 5MG FOR PAIN LEVEL OF 6/10. ALSO CALLED VICTOR MANUEL PT'S DAUGTHER AND INFORM HER THAT PT IS BEING DISCHARGE THIS AM. VICTOR MANUEL STATED THAT SHE WILL BE HERE IN ABOUT AN HOUR TO PICK PT UP.
--- NOTE | 2016-10-24 09:33 | NUR ---
CM REASSESSMENT NOTE: PATIENT IS DISCHARGING HOME TODAY-REFUSING HOME HEALTH AND HAS NO OTHER NEEDS FOR DISCHARGE. FAMILY IS DRIVING HER HOME. IMM SERVED
--- NOTE | 2016-10-24 09:41 | NUR ---
CM REASSESSMENT NOTE: PATIENT IS DISCHARGING HOME TODAY-DAUGHTER DRIVING HER PER PATIENT. PATIENT REFUSING HOME HEALTH AND HAS NO OTHER NEEDS FOR DISCHARGE. 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 SHE ALSO STATED SHE HAS A 24/7 ROOMMATE THAT HELPS HER WHEN NEEDED.
--- NOTE | 2016-10-24 10:53 | NUR ---
PROVIDED VERBAL AND WRITTEN DISCHARGE TEACHING TO PT. PT VERBALIZED UNDERSTANDING REGARDING TEACHING. ALSO DID TEACHING ON ARABELLA DRAINS, HOW TO EMPTY THEM AND COMPRESS THEM TO MAKE SURE THEY ARE DRAINING AND TO RECOR OUTPUT DAILY. PT WAITING ON RIDE, D/C RT HAND IV, TIP INTACT. NAD NOTED, PT WILL NOTIFY WHEN RIDE GETS HERE. WILL CONTINUE TO MONITOR.
--- NOTE | 2016-10-24 11:26 | NUR ---
PT LEFT UNIT VIA WHEELCHAIR, ACCOMPANIED BY DAUGTHER, AND OTHER FAMILY. NAD NOTED.
== END 2016-10-24 11:26 | disposition home or self-care (01) | DRG 580 ==
LOC: D.SDCHOLD 05:16 → D.MS 05:16 → D.SDCHOLD 10:45 → D.MS 15:43
PROVIDERS: Anesthesiology; ADMIT Surgery
PROC: 02HV33Z Insertion of Infusion Device into Superior Vena Cava, Percutaneous Approach (ICD-10-PCS; 2016-10-19)
PROC: B5181ZA Fluoroscopy of Superior Vena Cava using Low Osmolar Contrast, Guidance (ICD-10-PCS; 2016-10-19)
PROC: 0JPV0XZ Removal of Tunneled Vascular Access Device from Upper Extremity Subcutaneous Tissue and Fascia, Open Approach (ICD-10-PCS; principal; 2016-10-19 10:45)
PROC: 0JH63XZ Insertion of Tunneled Vascular Access Device into Chest Subcutaneous Tissue and Fascia, Percutaneous Approach (ICD-10-PCS; 2016-10-19 10:45)
PROC: 0HTU0ZZ Resection of Left Breast, Open Approach (ICD-10-PCS; 2016-10-21)
DX: C50.912 Malignant neoplasm of unspecified site of left female breast (principal); Z68.42 Body mass index [BMI] 45.0-49.9, adult; N61.1 Abscess of the breast and nipple; N61.0 Mastitis without abscess; E11.9 Type 2 diabetes mellitus without complications; E66.01 Morbid (severe) obesity due to excess calories

== ENCOUNTER → 2016-11-23 08:53 | Outpatient (CLI) | payer MEDICAID ==
[2016-10-19 19:42] VITALS: BMI 47.3
--- NOTE | ~2016-11-23 | EC ---
PATIENT:DEEPTI KILGORE DATE OF SERVICE: 11/23/16 SEX: F MEDICAL RECORD: [id number] DATE OF : 54 LOCATION:[facility] AGE OF PATIENT: 66 ADMISSION DATE: 11/23/16 REFERRING PHYSICIAN: INTERPRETING PHYSICIAN: SABRINA TANNER M.D. ECHOCARDIOGRAM REPORT ECHO CHARGES 4 ECHO COMPLETE CLINICAL DIAGNOSIS: BREAST CANCER/ ASSESS EF DUE TO STARTING CHEMO HX HTN ECHOCARDIOGRAPHIC MEASUREMENTS (adult normal given) AC root (d.<3.7cm) 3.1 LV Septum d (<1.2 cm> 1.4 Valve Excursion 1.6 LV Septum (systole) 1.5 Left Atria (s.<4.0cm> 4.6 LVPW d(<1.2cm) 1.2 RV (d.<2.3cm) 4.3 LVPW (sytole) 1.5 LV diastole(<5.6CM) 4.2 MV E-F(>70mm/sec) LV systole 3.3 LVOT Diameter 1.5 MV exc.(>10mm) 1.1 Est.ejection fraction (50-75%) Pericardial Effusion N DOPPLER: LVIT A 95.0 E 85.0 LA RVSP 21 LVOT 102 AOP1/2T Asc. Ao 184 RVOT 99 RA PA 129 AV Gradient Peak 13.48 AV Mean 8.56 AV Area 1.5 MV Gradient Peak 6.63 MV Mean 3.23 MV Area COMMENTS: Journeyman Glazier: Galilea HOOD Senior Cytogenetic Technologist:2 Dr. Tanner TAPE# PACS DATE OF SERVICE: 11/23/2016 REFERRING PHYSICIAN: Fatmata Bynum MD. INDICATION: Breast cancer, status post chemotherapy. DESCRIPTION: Left ventricle demonstrates left ventricular hypertrophy. No regional wall motion abnormalities are seen. Estimated ejection fraction is 55%. Mitral valve is structurally normal. There is mild regurgitation seen. Left atrium is mildly dilated. The aortic valve is trileaflet. There is no ECHOCARDIOGRAM REPORT [id number] DEEPTI KILGORE stenosis or regurgitation seen. Right ventricle is mildly dilated. Tricuspid valve is structurally normal. There is mild regurgitation noted. Right atrium is normal size. There is no pericardial effusion seen. IMPRESSION: 1. Left ventricular hypertrophy with preserved ejection fraction of 55%. 2. Mild mitral regurgitation. 3. Mild tricuspid regurgitation. TRANSINT:[id number] Voice Confirmation ID: [id number] DOCUMENT ID: [id number] SABRINA TANNER M.D. CC: [id number] DICTATION DATE: 11/24/16942 MANAGER CLEANING: 11/24/16 1447 [facility] CLI 11/23/16 [facility] [address] [id number]
[~2016-11-23 08:53] MED LIST changes: +KEFLEX500 MG PO; +OXYCODONE HCL5 MG PO
== END | disposition home or self-care (01) ==
LOC: D.ECHO 08:53
DX: C50.912 Malignant neoplasm of unspecified site of left female breast (principal)

== ENCOUNTER 2017-03-28 19:22 | Observation (INO) | payer MEDICAID ==
--- NOTE | ~2017-03-28 | HEMODYNAMI ---
PATIENT:DEEPTI KILGORE MEDICAL RECORD: [id number] : 54 [facility] [id number] ADMISSION DATE: 03/29/17 Generatedon:03/31/201713:42 Patient name: DEEPTI KILGORE Patient #: [id number] SSN: [id number] : 1950 Date of study: 03/31/2017 Page: Of Hemodynamic Procedure Report Patient Data Patient Demographics Procedure consent was obtained First Name: DEEPTI Gender: Female Last Name: MAGUI : 1950 Middle Initial: ERIC Age: 66 year(s) Patient #: [id number] Race: SSN: [id number] Additional ID: [id number] Contact details Address: [address] [place] [address] [address] State: [place] City: [place] Zip code: [address] Past Medical History Allergies Allergen Reaction Date Comments Reported Other allergy 03/31/2017 PCN, sulfa, cimetidine, clindamycin Admission Admission Data Admission Date: 03/29/2017 Admission Time: 0:24 Admit Source: Other Insurance Payor: Private Room #: [id number] health insurance Lab Results Lab Result Date: 03/31/2017 Lab Result Time: 0:00 Biochemistry Name Units Result Min Max BUN mg/dl 19 --(----)*- 7 18 Creatinine mg/dl 0.7 --(*---)-- 0.6 1.3 CBC Name Units Result Min Max Hemoglobin g/dl 9.4 *-(----)-- 13.5 17.5 Procedure Procedure Types Cath Procedure Diagnostic Procedure FFR/IVUS FFR Initial Miscellaneous Procedures Moderate Sedation up to 30 minutes Procedure Description Procedure Date Procedure Date: 03/31/2017 Procedure Start Time: 13:21 Procedure End Time: 13:37 Procedure Staff Name Function Dominic Fournier MD Performing Physician Lindsay Donnelly RT Scrub Michelle Gutierrez RT Monitor Noah Castillo RN Nurse Procedure Data Cath Procedure Fluoroscopy Diagnostic fluoroscopy Total fluoroscopy Time: 1.7 time: 1.7 min min Diagnostic fluoroscopy Total fluoroscopy dose: 85 dose: 85 mGy mGy Contrast Material Contrast Material Type Amount (ml) Isovue 300 6 Entry Location Entry Primary Successful Side Size Upsize Upsize Entry Closure Succes sful Closure Location (Fr) 1 (Fr) 2 (Fr) Remarks Device Remarks Femoral Right 6 Fr Exoseal artery Short Estimated blood loss: 5 ml Procedure Complications No complications Procedure Medications Medication Administration Route Dosage Oxygen NC 2 l/min Heparin Flush Bag added to field 2 bags (1000units/500ml NS) 0.9% NaCl I.V. 100 ml/hr Fentanyl I.V. 50 mcg Versed I.V. 1 mg Adenosine IV 1mg/ml I.V. 140 mcg/kg/min Fentanyl I.V. 50 mcg Versed I.V. 1 mg Hemodynamics Rest Heart Rate: 81 (bpm) Snapshots Pre Cath Intra NCS Post Cath Vital Signs Time Heart Resp SPO2 etCO2 NIBP (mmHg) Rhythm Pain Sedation Rate (ipm) (%) (mmHg) Status Level (bpm) 13:06:12 78 22 99 0 112/62(83) NSR 0 (11) 10(A) , No pain 13:11:11 78 18 94 0 117/65(86) NSR 0 (11) 10(A) , No pain 13:16:10 86 17 96 0 116/66(88) NSR 0 (11) 10(A) , No pain 13:21:05 91 18 97 0 129/74(100) NSR 0 (11) 10(A) , No pain 13:26:06 93 18 97 0 128/70(80) NSR 0 (11) 10(A) , No pain 13:31:17 108 19 99 0 94/50(69) NSR 0 (11) 10(A) , No pain 13:36:00 97 18 95 0 113/68(88) NSR 0 (11) 10(A) , No pain 13:42:29 97 13 93 0 Time NSR 0 (11) 10(A) Exceeded , No pain Medications Time Medication Route Dose Verified Delivered Reason Notes Effectiveness by by 13:01:31 Oxygen NC 2 l/min Dominic Buffie Per Shantanu Pride RN physician 13:01:46 Heparin Flush added 2 bags Dominic Buffie used for Bag to Shantanu Pride RN procedure (1000units/500ml field NS) 13:01:57 0.9% NaCl I.V. 100 ml/hr Dominic Buffie Per Shantanu Pride RN physician 13:23:03 Fentanyl I.V. 50 mcg Dominic Buffie for Shantanu Pride RN sedation 13:23:10 Versed I.V. 1 mg Dominic Buffie for Shantanu Pride RN sedation 13:28:56 Versed I.V. 1 mg Dominic Buffie for Shantanu Pride RN sedation 13:29:03 Adenosine IV I.V. 140 Dominic Buffie Per 1mg/ml mcg/kg/min Shantanu Pride RN physician 13:34:51 Fentanyl I.V. 50 mcg Dominic Buffie for Shantanu Pride RN sedation Procedure Log Time Note 12:30:02 Lindsay Donnelly RT(R) sent for patient. Start room use. 12:41:50 Diagnostic Cath status Elective 12:42:27 Time tracking: Regular hours 12:42:32 Plan of Care:Hemodynamics will remain stable., Cardiac rhythm will remain stable., Comfort level will be maintained., Respiratory function will remain adequate., Patient/ family verbilizes understanding of procedure., Procedure tolerated without complication., Recovers from procedure without complications.. 12:42:38 Patient received from Pre/Post Procedure Room to [facility] 3 Alert and oriented. Tansferred to table in Supine position. 13:00:25 Warm blankets applied, and amy hugger turned on for patient comfort. 13:00:26 Correct patient and procedure confirmed by team. 13:00:27 Signed procedure consent form obtained from patient. 13:00:28 ECG and BP/O2 sat monitors applied to patient. 13:01:31 Oxygen 2 l/min NC was administered by Fernando Pride RN; Per physician; 13:01:46 Heparin Flush Bag (1000units/500ml NS) 2 bags added to field was administered by Fernando Pride RN; used for procedure; 13:01:57 0.9% NaCl 100 ml/hr I.V. was administered by Fernando Pride RN; Per physician; 13:04:07 Vital chart was started 13:04:40 Baseline sample Acquired. 13:04:47 Rhythm: sinus rhythm 13:04:49 Full Disclosure recording started 13:04:58 H&P Date Dictated: 03/31/2017 Within 30 days and on chart.. 13:04:59 Pre-procedure instructions explained to patient. 13:04:59 Pre-op teaching completed and patient verbalized understanding. 13:05:00 Family in waiting room. 13:05:02 Patient NPO since Midnight. 13:05:17 Is the patient allergic to Iodine/contrast media? No. 13:05:18 Was the patient premedicated? No 13:05:21 Is patient on blood thinner?Yes 13:05:24 ACC The patient was administered the following blood thiners within the last 24 hours: ACCPlavix 13:05:29 Patient diabetic? Yes. 13:05:35 If diabetic: On Metformin? No 13:05:44 Previous problem with sedation/anesthesia? Yes hard to arouse 13:05:50 Snore? Yes 13:05:50 Sleep apnea? Yes 13:05:52 Deviated septum? No 13:05:52 Opens mouth fully? Yes 13:05:53 Sticks out tongue? Yes 13:05:58 Airway obstruction? No ? 13:06:01 Dentures? No ? 13:06:12 Patient pain scale 0/10 ?. 13:06:25 IV patent on arrival in right forearm with 0.9% NaCl at [facility]. 13:06:30 Lab results completed and on chart. 13:06:34 Right groin area was prepped with chlora-prep and draped in sterile fashion 13:06:35 Alarms reviewed by R. N. 13:06:36 Sharps counted by scrub and verified by R.N. 13:06:37 Physician arrived 13:06:37 --------ALL STOP TIME OUT------ 13:06:38 Final Timeout: patient, procedure, and site verified with staff and physician. All members of the team are in agreement. 13:06:42 Right groin site verified by team. 13:06:44 Physical assessment completed. ASA score P 2 - A patient with mild systemic disease as per Dominic Fournier MD. 13:06:48 Sedation plan: IV Moderate Sedation Versed, Fentanyl 13:07:15 Copilot Bleedback Control Valve opened to sterile field. 13:07:22 Use device set Femoral PCI 13:07:23 Acist Syringe opened to sterile field. 13:07:23 Acist Hand Control opened to sterile field. 13:07:24 Bag Decanter opened to sterile field. 13:07:24 Medline Cath Pack opened to sterile field. 13:07:25 Terumo 6Fr [place] Sheath opened to sterile field. 13:07:27 St Santy 260cm J .035 wire opened to sterile field. 13:07:28 Merit BasixCompak Inflation Kit opened to sterile field. 13:07:28 Acist Manifold opened to sterile field. 13:07:29 Tegaderm 4 x 4 opened to sterile field. 13:07:42 ikeGPS 4Fr Micropuncture Set ([id number]) opened to sterile field. 13:20:55 ParentingInformer Verrata Plus pressure wire opened to sterile field. 13:21:13 Procedure started. 13:21:16 Local anesthetic to right femoral artery with Lidocaine 2% by Dominic Fournier MD.INITIAL ACCESS ONLY 13:21:17 Access obtained with 4Fr micropunture. 13:21:18 A 6 Fr Short sheath was inserted into the Right Femoral artery 13:22:01 Cordis 6FR XBLAD 3.5 guide catheter opened to sterile field. 13:23:03 Fentanyl 50 mcg I.V. was administered by Fernando Pride RN; for sedation; 13:23:10 Versed 1 mg I.V. was administered by Fernando Pride RN; for sedation; 13:23:26 6 Fr xblad 3.5 guide catheter was inserted over the wire 13:26:16 FFR wire advanced. 13:28:56 Versed 1 mg I.V. was administered by Fernando Pride RN; for sedation; 13:29:03 Adenosine IV 1mg/ml 140 mcg/kg/min I.V. was administered by Fernando Pride RN; Per physician; 13:33:01 Wire removed. 13:33:04 Guide catheter removed. 13:33:52 Cordis 6Fr Exoseal opened to sterile field. 13:34:51 Fentanyl 50 mcg I.V. was administered by Fernando Pride RN; for sedation; 13:36:30 Sheath removed intact; hemostasis achieved with Exoseal to the Right Femoral artery. 13:36:32 Procedure ended.(Physican Out) 13:36:42 Fluoroscopy time 01.70 minutes. 13:36:49 Flurop Dose total: 85 13:36:49 Fluoroscopy dose: 85 mGy 13:36:52 Contrast amount:Isovue 300 6ml. 13:36:54 Sharps counted by scrub and verified by R.N. 13:36:56 Insertion/operative site no bleeding no hematoma. 13:36:59 Post-op/insertion site Right Femoral artery dressed using a 4 x 4 and Tegaderm. 13:37:07 Post right femoral artery:stable 13:37:09 Post Procedure Pulses reassessed and unchanged 13:37:13 Post procedure rhythm: unchanged. 13:37:15 Estimated blood loss: 5 ml 13:37:16 Post procedure instruction explained to patient.Patient verbalizes understanding. 13:37:16 Patient needs reinforcement of post procedure teaching. 13:37:32 Procedure type changed to Cath procedure, Diagnostic procedure, FFR/IVUS, FFR Initial, Miscellaneous Procedures, Moderate Sedation up to 30 minutes 13:37:33 Procedure and supply charges have been captured, reviewed, submitted and are correct. 13:37:38 Procedure Complication : No complications 13:37:40 Vital chart was stopped 13:37:40 See physician's report for complete and final results. 13:37:44 Report given to [facility]. 13:37:47 Patient transfered to [facility] with Stretcher. 13:37:49 Procedure ended. 13:37:49 Full Disclosure recording stopped 13:37:52 End room use (Document Last) Device Usage Item Name Manufacture Quantity Catalog Hospital Part Current Minima l Lot# / Number Charge Number Stock Stock Serial# Code Copilot Mcgovern 1 [id number] 727450 472212 [id number] 5 Bleedback Vascular Control Valve Acist Syringe Acist 1 89900 549477 734556 937224 20 [employer] Inc Acist Hand Acist 1 65813 993430 668618 941831 5 Control Medical Systems Inc Bag Decanter Microtek 1 2002S 548077 43703 707387 5 Medical Inc. Medline Cath Cardinal 1 [id number] 197379 27649 891931 5 Giritech Terumo 6Fr Terumo 1 JNF810 339033 687106 643726 [address] Santy 1 775016 620108 341126 820409 30 J .035 wire Merit Merit 1 CI9537 399632 861632 489247 15 BasixCompak Medical Inflation Kit Acist Acist 1 28476 691136 013528 412065 5 Phantom Medical Systems Inc Tegaderm 4 x 3M 1 1626W 828783 806244 821227 5 4 Cook 4Fr Cook Medical 1 T43771 320996 520463 876991 5 Micropuncture Set (T02971) [place]uss[place] Trussville 1 75970S 250539 1962734 082949 5 Verrata Plus pressure wire Cordis 6FR Cardinal 1 [id number] 218184 975389 717475 10 XBLAD 3.5 Health guide catheter Cordis 6Fr Cardinal 1 EX600 761804 518530 639931 10 [facility] Signature Audit [place] Stage Time Signature Unsigned Intra-Procedure 03/31/2017 Michelle Gutierrez 1:42:55 PM RT(R) Signatures Monitor : Michelle Gutierrez RT Signature : Date : Time : [facility] [address] [place] [address]
--- NOTE | ~2017-03-28 | HEMODYNAMI ---
PATIENT:DEEPTI KILGORE MEDICAL RECORD: [id number] : 54 [id number] ADMISSION DATE: 03/29/17 Generatedon:03/31/20179:21 Patient name: DEEPTI KILGORE Patient #: [id number] SSN: [id number] : 1950 Date of study: 03/31/2017 Page: Of Hemodynamic Procedure Report Patient Data Patient Demographics Procedure consent was obtained First Name: DEEPTI Gender: Female Last Name: MAGUI : 1950 Middle Initial: ERIC Age: 66 year(s) Patient #: [id number] Race: SSN: [id number] Additional ID: [id number] Contact details [address]: [address] [place] [address] State: [place] City: [place] Zip code: [address] Past Medical History Allergies Allergen Reaction Date Comments Reported Other allergy 03/31/2017 PCN, sulfa, cimetidine, clindamycin Admission Admission Data Admission Date: 03/29/2017 Admission Time: 0:24 Admit Source: Other Insurance Payor: Private Room #: [id number] health insurance Lab Results Lab Result Date: 03/31/2017 Lab Result Time: 0:00 Biochemistry Name Units Result Min Max BUN mg/dl 19 --(----)*- 7 18 Creatinine mg/dl 0.7 --(*---)-- 0.6 1.3 CBC Name Units Result Min Max Hemoglobin g/dl 9.4 *-(----)-- 13.5 17.5 Procedure Procedure Types Cath Procedure Diagnostic Procedure LHC LH w/Coronaries Miscellaneous Procedures Moderate Sedation up to 45 minutes Procedure Description Procedure Date Procedure Date: 03/31/2017 Procedure Start Time: 8:36 Procedure End Time: 9:15 Procedure Staff Name Function Dominic Fournier MD Performing Physician Fernando Pride RN Nurse Michelle Gutierrez RT Monitor Malka Guerrero RT Scrub Indication Angina Procedure Data Cath Procedure Fluoroscopy Diagnostic fluoroscopy Total fluoroscopy Time: 9 time: 9 min min Diagnostic fluoroscopy Total fluoroscopy dose: dose: 1308 mGy 1308 mGy Contrast Material Contrast Material Type Amount (ml) Isovue 300 51 Entry Location Entry Primary Successful Side Size Upsize Upsize Entry Closure Castro ccessful Closure Location (Fr) 1 (Fr) 2 (Fr) Remarks Device Remarks Radial Right 6 Fr Mechanical artery Short Compression Estimated blood loss: 5 ml Diagnostic catheters Device Type Used For End Catheter Placement Diagnostic Terumo 5Fr Multi-vessel Redding 110cm catheter Angiography Procedure Complications No complications Procedure Medications Medication Administration Route Dosage Oxygen NC 2 l/min Lidocaine 2% added to field 20 Heparin Flush Bag added to field 2 bags (1000units/500ml NS) 0.9% NaCl I.V. 100 ml/hr Versed I.V. 1 mg Fentanyl I.V. 25 mcg Radial Cocktail I.A. 1 syringe (Verapomil 2mg/Nitro 400mcg/Heparin 1500units) Heparin Bolus I.V. 3000 units Nitroglycerin IC/IA I.C. 250 mcg Nitroglycerin IC/IA I.C. 200 mcg Hemodynamics Rest HGB: 9.4 (g/dl) Heart Rate: 84 (bpm) Pressure Samples Time Site Value (mmHg) Purpose Heart Use Rate(bpm) 8:58 AO 125/73(99) Pullback 95 8:58 LV 138/-2,24 Pullback 95 Gradients Valve Time Site 1 Site 2 Mean SEP/DFP Peak To Heart Use (mmHg) (sec/min) Peak Rate (mmHg) (bpm) Aortic 8:58 LV AO 10 20 13 95 138/-2,24 125/73(99) Calculations Valve P-P Mean Valve Index Valve Source Name Gradient Area Flow (cm2) Aortic 13 10 13 10 Snapshots Pre Cath Intra NCS Post Cath Vital Signs Time Heart Resp SPO2 etCO2 NIBP (mmHg) Rhythm Pain Sedation Rate (ipm) (%) (mmHg) Status Level (bpm) 8:30:38 92 23 94 0 133/84(103) NSR 0 (11) 10(A) , No pain 8:35:23 85 17 96 0 128/76(98) NSR 0 (11) 10(A) , No pain 8:40:10 88 16 96 0 128/70(104) NSR 0 (11) 10(A) , No pain 8:44:54 93 15 96 0 115/62(88) NSR 0 (11) 10(A) , No pain 8:49:35 92 16 96 0 114/74(92) NSR 0 (11) 10(A) , No pain 8:54:18 93 15 96 0 118/76(92) NSR 0 (11) 10(A) , No pain 8:58:58 94 16 97 0 121/77(95) NSR 0 (11) 10(A) , No pain 9:03:41 94 17 97 0 126/69(96) NSR 0 (11) 10(A) , No pain 9:08:24 92 19 97 0 124/71(97) NSR 0 (11) 10(A) , No pain 9:09:37 95 18 97 0 123/71(103) NSR 0 (11) 10(A) , No pain 9:14:20 90 18 98 0 123/70(104) NSR 0 (11) 10(A) , No pain Medications Time Medication Route Dose Verified Delivered Reason Notes Effectiveness by by 8:25:11 Oxygen NC 2 l/min Dominic Buffie used for Shantanu ambriz MD 8:29:16 Lidocaine 2% added 20ml Dominic Dominic for local to vial Shantanu Fournier MD anesthetic field MEDLEY 8:29:23 Heparin Flush added 2 bags Dominic Dominic used for Bag to Shantanu Fournier MD procedure (1000units/500ml field MEDLEY NS) 8:29:38 0.9% NaCl I.V. 100 Dominic Buffie used for ml/hr Shantanu ambriz MD 8:34:23 Versed I.V. 1 mg Dominic Buffie for sedation Shantanu Pride RN, MD 8:34:30 Fentanyl I.V. 25 mcg Dominic Buffie for sedation Shantanu Pride RN, MD 8:41:55 Radial Cocktail I.A. 1 Dominic Dominic for (Verapomil syringe Shantanu Fournier MD vasodilation 2mg/Nitro 400mcg/Heparin 1500units) 8:57:58 Heparin Bolus I.V. 3000 Dominic Buffie for units Shantanu Pride RN anticoagulation 9:05:32 Nitroglycerin I.C. 250 mcg Dominic Dominic for IC/IA Shantanu Fournier MD vasodilation 9:08:51 Nitroglycerin I.C. 200 mcg Dominic Alfaro for IC/IA Shantanu Fournier MD vasodilation Procedure Log Time Note 8:12:03 Diagnostic Cath Status : Elective 8:12:26 Indication : Angina 8:12:32 Fernando Pride RN sent for patient. Start room use. 8:12:32 Time tracking: Regular hours 8:12:38 Plan of Care:Hemodynamics will remain stable., Cardiac rhythm will remain stable., Comfort level will be maintained., Respiratory function will remain adequate., Patient/ family verbilizes understanding of procedure., Procedure tolerated without complication., Recovers from procedure without complications.. 8:12:58 Informed consent obtained and on chart 8:14:22 Insurance Payor : Private health insurance 8:14:24 Admit Source: Other 8:14:49 Lab Result : Hemoglobin 9.4 g/dl 8:14:49 Lab Result : Creatinine 0.7 mg/dl 8:14:49 Lab Result : BUN 19 mg/dl 8:17:55 Patient received from Med II to CCL 1 Alert and oriented. Tansferred to table in Supine position. 8:17:57 Warm blankets applied, and amy hugger turned on for patient comfort. 8:17:57 Correct patient and procedure confirmed by team. 8:17:58 ECG and BP/O2 sat monitors applied to patient. 8:19:33 H&P Date Dictated: 03/30/2017 Within 30 days and on chart., H&P Addendum completed by physician on day of procedure. (MUST COMPLETE FOR ALL OUTPATIENTS). 8:19:34 Pre-procedure instructions explained to patient. 8:19:37 Family unavailable. 8:19:39 Patient NPO since Midnight. 8:20:26 Patient allergic to Other allergyPCN, sulfa, cimetidine, clindamycin 8:20:29 Is the patient allergic to Iodine/contrast media? No. 8:20:41 Is patient on blood thinner?No 8:20:45 Patient diabetic? Yes. 8:20:47 If diabetic: On Metformin? No 8:20:54 Previous problem with sedation/anesthesia? Yes hard to wake 8:20:57 Snore? Yes 8:20:58 Sleep apnea? Yes 8:21:07 Airway obstruction? N/A SOB 8:21:11 Dentures? Yes Out 8:21:16 Patient pain scale 0/10 ?. 8:21:31 IV patent on arrival in right forearm with 0.9% NaCl at [facility]. 8:21:36 Lab results completed and on chart. 8:22:13 Right Radial & Right Groin area was prepped with chlora-prep and draped in sterile fashion 8:22:16 Alarms reviewed by R. N. 8:22:17 Sharps counted by scrub and verified by R.N. 8:22:19 Physician paged 8:22:35 Physician arrived 8:23:42 --------ALL STOP TIME OUT------ 8::43 Final Timeout: patient, procedure, and site verified with staff and physician. All members of the team are in agreement. 8:23:47 Right Radial & Right Groin site verified by team. 8:23:54 Sedation plan: IV Moderate Sedation Versed, Fentanyl 8:25:11 Oxygen 2 l/min NC was administered by Fernando Pride RN; used for procedure; 8:25:18 Use device set Radial Dx 8:27:58 Acist Syringe opened to sterile field. 8:27:58 Medline Cath Pack opened to sterile field. 8:27:58 Bag Decanter opened to sterile field. 8:27:59 Terumo 6Fr Slender Glidesheath opened to sterile field. 8:27:59 St Santy 260cm J .035 wire opened to sterile field. 8:28:00 Acist Hand Control opened to sterile field. 8:28:00 Acist Manifold opened to sterile field. 8:28:01 Tegaderm 4 x 4 opened to sterile field. 8:28:02 MBrace Wrist Support opened to sterile field. 8:29:16 Lidocaine 2% 20ml vial added to field was administered by Dominic Fournier MD; for local anesthetic; 8:29:23 Heparin Flush Bag (1000units/500ml NS) 2 bags added to field was administered by Dominic Fournier MD; used for procedure; 8:29:38 0.9% NaCl 100 ml/hr I.V. was administered by Fernando Pride RN; used for procedure; 8:29:41 Vital chart was started 8:33:21 Zero performed for pressure channel P1 8:33:26 Zero performed for pressure channel P1 8:33:35 Zero performed for pressure channel P1 8:34:23 Versed 1 mg I.V. was administered by Fernando Pride RN; for sedation; 8:34:30 Fentanyl 25 mcg I.V. was administered by Fernando Pride RN; for sedation; 8:36:23 Procedure started. 8:36:24 Full Disclosure recording started 8:36:33 Local anesthetic to right radial artery with Lidocaine 2% by Dominic Fournier MD.INITIAL ACCESS ONLY 8:38:17 Baseline sample Acquired. 8:41:21 A 6 Fr Short sheath was inserted into the Right Radial artery 8:41:55 Radial Cocktail (Verapomil 2mg/Nitro 400mcg/Heparin 1500units) 1 syringe I.A. was administered by Dominic Fournier MD; for vasodilation; 8:43:03 Terumo ANGLE 260cm glide wire opened to sterile field. 8:43:16 Terumo TORQUE DEVICE PLASTIC .038 opened to sterile field. 8:45:28 glide wire advanced. 8:45:35 A Diagnostic Terumo 5Fr Redding 110cm catheter was advanced over the wire and used for Multi-vessel Angiography. 8:47:19 LCA angiography performed. 8:47:23 Injector settings: Ml/sec: 3, Volume: 6, 8:54:06 RCA angiography performed. 8:54:13 Injector settings: Ml/sec: 3, Volume: 6, 8:57:58 Heparin Bolus 3000 units I.V. was administered by Fernando Pride RN; for anticoagulation; 8:58:38 Aguanga Verrata Plus pressure wire opened to sterile field. 8:59:10 LV gram done using MALONE 8:59:13 Injector settings: Ml/sec: 5, Volume: 15, 8:59:24 EF : 50 % 9:02:07 Catheter removed. 9:03:47 Dopiostronic Launcher 6Fr EBU 3.5 guide catheter opened to sterile field. 9:04:03 6 Fr ebu 3.5 guide catheter was inserted over the wire 9:05:32 Nitroglycerin IC/IA 250 mcg I.C. was administered by Dominic Fournier MD; for vasodilation; 9:08:51 Nitroglycerin IC/IA 200 mcg I.C. was administered by Dominic Fournier MD; for vasodilation; 9:09:25 Copilot Bleedback Control Valve opened to sterile field. 9:09:54 Merit BasixCompak Inflation Kit opened to sterile field. 9:13:37 Terumo TR Band Large opened to sterile field. 9:13:47 Guide catheter removed. 9:14:01 Sheath removed intact; hemostasis achieved with Mechanical Compression to the Right Radial artery. 9:14:03 Procedure ended.(Physican Out) 9:14:14 Fluoroscopy time 09.00 minutes. 9:14:20 Fluoroscopy dose: 1308 mGy 9:14:20 Flurop Dose total: 1308 9:14:26 Contrast amount:Isovue 300 51ml. 9:14:31 Sharps counted by scrub and verified by R.N. 9:14:34 TR band inflated with 10cc of air. 9:14:36 Insertion/operative site no bleeding no hematoma. 9:14:39 Post Procedure Pulses reassessed and unchanged 9:14:43 Post procedure rhythm: unchanged. 9:14:46 Estimated blood loss: 5 ml 9:14:47 Post procedure instruction explained to patient.Patient verbalizes understanding. 9:14:48 Patient needs reinforcement of post procedure teaching. 9:15:14 Procedure type changed to Cath procedure, Diagnostic procedure, LHC, LHC w/Coronaries, Miscellaneous Procedures, Moderate Sedation up to 45 minutes 9:15:16 Procedure and supply charges have been captured, reviewed, submitted and are correct. 9:15:21 Procedure Complication : No complications 9:15:23 Vital chart was stopped 9:15:26 See physician's report for complete and final results. 9:15:33 Report given to Med II. 9:15:38 Procedure ended. 9:15:38 Full Disclosure recording stopped 9:15:42 End room use (Document Last) Device Usage Item Name Manufacture Quantity Catalog Hospital Part Current Minima l Lot# / Number Charge Number Stock Stock Serial# Code Acist Acist 1 12915 283920 044784 801461 20 Syringe Medical Systems Inc Medline Cardinal 1 [id number] 752797 96576 388704 5 Cath Pack Health Bag Microtek 1 2001S 820299 23194 918256 5 [employer] Inc. Terumo 6Fr Terumo 1 [id number] 315236 739916 493675 [address] Santy 1 815376 569159 234946 256847 30 260cm J .035 wire Acist Hand Acist 1 72298 384143 018685 418784 5 Control Medical Systems Inc Acist Acist 1 37776 028060 881568 051948 5 Manifold Medical Systems Inc Tegaderm 4 3M 1 1626W 133273 499356 806292 5 x 4 MBrace Advanced 1 140-0250-00 378129 85413 358600 5 Wrist Vascular Support Dynamics Diagnostic Terumo 1 40-3379 962511 678737 006165 5 Terumo 5Fr Redding 110cm catheter Terumo Terumo 1 [id number] 015716 270480 989840 5 ANGLE 260cm glide wire Terumo [place] 1 TD01 503527 146924 867668 5 TORQUE Scientific DEVICE PLASTIC .038 Aguanga Aguanga 1 21437N 275805 9413751 231049 5 Verrata Plus pressure wire Medtronic Medtronic 1 [id number] 079747 69161 927037 3 Launcher 6Fr EBU 3.5 guide catheter Copilot Mcgovern 1 [id number] 628932 866416 037353 5 Bleedback Vascular Control Valve Merit Merit 1 [id number] 142497 104116 119638 15 BasixComtxk Medical Inflation Kit Terumo TR Terumo 1 [id number] 488840 927298 089305 40 Band Large Signature Audit Eva Stage Time Signature Unsigned Intra-Procedure 03/31/2017 Michelle Gutierrez 9:21:54 AM RT(R) Signatures Monitor : Michelle Gutierrez RT Signature : Date : Time : [facility] [address], [place] [address]
[2017-03-28 20:09] LABS: BASOPHILS 0.5 % (0-2); EOSINOPHILS 1.8 % (0-7); HEMATOCRIT 28.7 % (36.0-48.0); HEMOGLOBIN 9.1 g/dL (12-16); IMMATURE GRANULOCYTES 0.6 % (0-5); MCH 30.5 pg (26.0-34.0); MCHC 31.7 g/dL (31.0-37.0); MCV 96.3 fL (80.0-100.0); MEAN PLATELET VOLUME 9.8 fL (7.4-10.4); MONOCYTES 6.6 % (2-11); NEUTROPHILS 60.5 % (40-80); RBC 2.98 10x6/uL (4.00-5.40); RDW 19.1 % (11.5-14.5); WBC 7.9 10x3/uL (4.8-10.8)
[2017-03-28 20:18] LABS: PLATELET COUNT 336 10x3/uL (130-400)
[2017-03-28 20:34] LABS: ALBUMIN 2.9 g/dL (3.4-5.0); ALKALINE PHOSPHATASE 74 U/L (46-116); ALT (SGPT) 18 U/L (10-68); BILIRUBIN - TOTAL 0.15 mg/dL (0.2-1.3); CALC OSMOLALITY 277 mosm/kg (275-300); CALCIUM 8.7 mg/dL (8.5-10.1); CARBON DIOXIDE 27.9 mmol/L (21.0-32.0); CHLORIDE - SERUM 99 mmol/L (98-107); CREATININE - SERUM 0.7 mg/dL (0.6-1.3); GLUCOSE 155 mg/dL (74-106); POTASSIUM - SERUM 3.6 mmol/L (3.5-5.1); PROTEIN - SERUM 7.3 g/dL (6.4-8.2); SODIUM 135 mmol/L (136-145); UREA NITROGEN 26 mg/dL (7-18); eGFR NON AFRICAN AMERICAN 89 mL/min (90-120)
[2017-03-28 20:48] LABS: CREATINE KINASE 39 UL (21-215)
[2017-03-28 20:55] LABS: TROPONIN-I 0.108 ng/mL (0.000-0.060)
[2017-03-28 23:44] LABS: CKMB 0.3 U/L (0.0-3.6)
[2017-03-29 00:06] LABS: APPEARANCE CLEAR (CLEAR); BILIRUBIN NEGATIVE (NEGATIVE); COLOR YELLOW (YELLOW); GLUCOSE NEGATIVE (NEGATIVE); KETONE NEGATIVE (NEGATIVE); NITRITE NEGATIVE (NEGATIVE); PROTEIN NEGATIVE (NEGATIVE); SPECIFIC GRAVITY 1.015 (1.005-1.020); UROBILINOGEN NORMAL (NORMAL)
--- NOTE | 2017-03-29 02:15 | NUR ---
REC'D FROM ER VIA W/C @ 1127. ORIENTED TO ROOM, USE OF BEDRAILS AND CALL LIGHTS CONTROLS. INITIAL ASSESSMENT COMPLETED AND RECORDED PER FLOW SHEET. DENIES MINIMAL PAIN AND SAYS THAT IT IS ALL AT THE SITE OF HER INFUSAPORT. DENIES NEEDS AT PRESENT
[2017-03-29 02:21] LABS: CKMB 0.5 U/L (0.0-3.6); CREATINE KINASE 42 UL (21-215)
[2017-03-29 02:22] LABS: TROPONIN-I 0.122 ng/mL (0.000-0.060)
[2017-03-29 02:36] VITALS: BP 122/67; BMI 46.4
--- NOTE | 2017-03-29 05:52 | NUR ---
HAS RESTED W/O COMPLAINT SINCE SHORTLY AFTER ARRIVAL. HAS BEEN SR 86 ON MONITOR WITH AN OCC PVC. NO C/O'S PAIN, WILL CONT WITH CURRENT PLAN OF CARE AND MONITOR.
[2017-03-29 08:00] VITALS: BP 140/58
[2017-03-29 08:44] LABS: CKMB 0.9 U/L (0.0-3.6); CREATINE KINASE 42 UL (21-215); TROPONIN-I 0.131 ng/mL (0.000-0.060)
--- NOTE | 2017-03-29 09:00 | NUR ---
TELEMETRY ST. HR 112. C/O PAIN TO INFUSAPORT SITE. MEDICATED WITH MORPHINE NEEDED. CALL LIGHT IN REACH. WILL CONT. NORIS OF CARE.
[2017-03-29 10:14] VITALS: BMI 46.3
[2017-03-29 12:00] VITALS: BP 101/77
[2017-03-29 14:01] LABS: CKMB 0.9 U/L (0.0-3.6); CREATINE KINASE 44 UL (21-215); TROPONIN-I 0.115 ng/mL (0.000-0.060)
[2017-03-29 16:00] VITALS: BP 138/57
--- NOTE | 2017-03-29 16:30 | NUR ---
DR. POLK OFFICE CALLED TO NOTIFY OF CONT C/O PAIN TO INFUSAPORT SITE. CT ORDERED.
[2017-03-29 19:00] VITALS: BP 131/60
--- NOTE | 2017-03-29 19:00 | NUR ---
RECEIVED REPORT AND ASSUMED PT CARE FROM DAY SHIFT NURSE @ THIS TIME.
--- NOTE | 2017-03-29 20:35 | NUR ---
PT STATES NEEDING TO TAKE HER ROUTINE MEDICATIONS. NO ORDERS REGARDING HER HOME MEDS. CALL TO DR KAHTERINE VÁSQUEZ STAFF ELECTRONIC WARFARE OFFICER. RETURNS CALL - MEDICATIONS REVIEWED AND RESTARTED FOR HER PM MEDS. PT UPDATED ON POC AND VERBALIZED UNDERSTANDING.
--- NOTE | 2017-03-29 20:55 | NUR ---
PT TO RADIOLOGY VIA FOR CT OF CHEST.
--- NOTE | 2017-03-29 21:05 | NUR ---
PT RETURNS FROM RADIOLOGY PER WC AND ASSISTED BACK TO BED. PT TOLERATED WELL. WILL MONITOR.
[2017-03-30] VITALS: BP 153/53
[2017-03-30 04:00] VITALS: BP 119/53
[2017-03-30 08:23] VITALS: BP 118/54
--- NOTE | 2017-03-30 09:21 | NUR ---
TELEMETRY SR. CALL LIGHT IN REACH. WILL CONT. PLAN OF CARE.
[2017-03-30 10:36] LABS: % SATURATION 14 % (15-55); IRON 40 ug/dl (35-150); TOTAL IRON BIND CAPACITY 272 ug/dl (260-445); UNSAT IRON BIND CAPACITY 232 ug/dl (150-375)
[2017-03-30 11:59] VITALS: BP 104/43
[2017-03-30 16:23] VITALS: BP 122/48
[2017-03-30 18:21] LABS: BASOPHILS 0.2 % (0-2); EOSINOPHILS 2.5 % (0-7); HEMATOCRIT 30.4 % (36.0-48.0); HEMOGLOBIN 9.4 g/dL (12-16); IMMATURE GRANULOCYTES 0.5 % (0-5); LYMPHOCYTES 38.2 % (15-50); MCH 30.7 pg (26.0-34.0); MCHC 30.9 g/dL (31.0-37.0); MONOCYTES 7.5 % (2-11); NEUTROPHILS 51.1 % (40-80); PLATELET COUNT 336 10x3/uL (130-400); RBC 3.06 10x6/uL (4.00-5.40); RDW 18.2 % (11.5-14.5); WBC 6.5 10x3/uL (4.8-10.8)
[2017-03-30 18:29] LABS: MCV 99.3 fL (80.0-100.0)
[2017-03-30 18:38] LABS: CALCIUM 8.5 mg/dL (8.5-10.1); CHLORIDE - SERUM 100 mmol/L (98-107); CREATININE - SERUM 0.7 mg/dL (0.6-1.3); GLUCOSE 143 mg/dL (74-106); SODIUM 137 mmol/L (136-145); eGFR NON AFRICAN AMERICAN 89 mL/min (90-120)
[2017-03-30 18:39] LABS: CALC OSMOLALITY 277 mosm/kg (275-300); CARBON DIOXIDE 36.7 mmol/L (21.0-32.0); POTASSIUM - SERUM 4.6 mmol/L (3.5-5.1); UREA NITROGEN 19 mg/dL (7-18)
--- NOTE | 2017-03-30 19:22 | NUR ---
RESUMED CARE OF PT, LYING IN BED RESPIRATIONS EVEN AND UNLABORED ON ROOM AIR. 93 SR ON TELEMETRY. RIGTH FOREARM SALINE LOCKED. CALL LIGHT IN REACH. WILL CONTINUE TO MONITOR. PLAN OF CARE DISCUSSED.
[2017-03-30 20:00] VITALS: BP 132/48
[2017-03-31] VITALS: BP 126/52
--- NOTE | 2017-03-31 01:16 | NUR ---
LYING IN BED, RESTING COMFORTABLY. CALL LIGHT IN REACH. WILL CONTINUE TO MONITOR.
[2017-03-31 04:00] VITALS: BP 131/69
--- NOTE | 2017-03-31 06:29 | NUR ---
BED BATH AND LINENS CHANGED. NPO FOR [facility] THIS AM. NO CHANGES FROM PREVIOUS ASSESSMENT.
--- NOTE | 2017-03-31 07:30 | NUR ---
RECIEVED REPORT ON PATIENT, PATIENT IS SLEEPING AT THIS TIME, NAD NOTED AT THIS TIME. PATIENT IS SR ON MONITOR WITH A RATE OF 93. PATIENT HAS A R FA IV THAT IS SL AT THIS TIME. BED IS LOW AND LOCKED, CALL LIGHT IN REACH. CPOC
[2017-03-31 08:03] VITALS: BP 134/66
--- NOTE | 2017-03-31 08:03 | NUR ---
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 CPOC
--- NOTE | 2017-03-31 08:16 | NUR ---
PATIENT GONE TO HYDROGEN POWER PLANT MANAGER. CPOC
--- NOTE | 2017-03-31 08:30 | EC ---
PATIENT:DEEPTI KILGORE DATE OF SERVICE: 03/29/17 SEX: F MEDICAL RECORD: [id number] DATE OF : [birth year] LOCATION:D.M2 D.211 AGE OF PATIENT: 66 ADMISSION DATE: 03/29/17 REFERRING PHYSICIAN: INTERPRETING PHYSICIAN: STERLING PEREZ MD ECHOCARDIOGRAM REPORT ECHO CHARGES 4 ECHO COMPLETE CLINICAL DIAGNOSIS: ELEVATED TROPINON, CHEST PAIN HX OF CHEMOTHERAPY ECHOCARDIOGRAPHIC MEASUREMENTS (adult normal given) AC root (d.<3.7cm) 3.4 cm LV Septum d (<1.2 cm> 1.1 cm Valve Excursion 1.1 cm LV Septum (systole) 1.2 cm Left Atria (s.<4.0cm> 3.7 cm LVPW d(<1.2cm) 1.2 cm RV (d.<2.3cm) 3.8 cm LVPW (sytole) 1.5 cm LV diastole(<5.6CM) 4.9 cm MV E-F(>70mm/sec) cm LV systole 3.3 cm LVOT Diameter 1.4 cm MV exc.(>10mm) 1.2 cm Est.ejection fraction (50-75%) % Pericardial Effusion N DOPPLER: LVIT cm/sec A 104 cm/sec E 119 cm/sec LA cm/sec RVSP 48 mmHg LVOT 91 cm/sec AOP1/2T m/s Asc. Ao 181 cm/sec RVOT 117 cm/sec RA 159 cm/sec PA cm/sec AV Gradient Peak 13.11mmHg AV Mean 7.74 mmHg AV Area 1.1 cm MV Gradient Peak 13.92mmHg MV Mean 7.80 mmHg MV Area cm COMMENTS: Diploma Pharmacy Technician: 2 ISIAH HOOD Adult Protective Caseworker: 4 Dr. Perez TAPE# PACS DATE OF SERVICE: 03/30/2017 Had an echocardiogram because of elevated troponins and chest pain. FINDINGS: Structure of the heart is difficult to ascertain because the patient has very large chest and much of the images suboptimal quality; however, given those restrictions, the patient appears to be hyperdynamic and her LV systolic function, although the inferior and lateral aspect of the heart were not seen well at all. Most of this is on Doppler evaluation. There are no obvious valvular abnormalities. There is no evidence of significant stenotic or ECHOCARDIOGRAM REPORT [id number] ZAPATA regurgitant lesions. The overall ejection fraction appears to be preserved, although she does have a sigmoid septum and in fact in 1-view, the heart even looks hyperdynamic. There is no pericardial effusion. The Doppler evaluation across the tricuspid valve indicates elevated right ventricular systolic pressures of 40-50 mmHg. CONCLUSIONS: The patient's heart function does not demonstrate any regional wall motion abnormalities, but there is slight elevations and pulmonary pressures. TRANSINT:[id number] Voice Confirmation ID: [id number] DOCUMENT ID: [id number] STERLING PEREZ MD at 0830 CC: [id number] DICTATION DATE: 03/30/17 1546 TIE SAWYER: 03/30/17 1841 ADM IN [facility] [address] [place] [address]
--- NOTE | 2017-03-31 08:32 | HP ---
PATIENT: DEEPTI KILGORE MEDICAL RECORD: [id number] ACCOUNT: [id number] LOCATION:[address] : [birth year] ADMISSION DATE: 03/29/17 HISTORY AND PHYSICAL EXAMINATION DATE OF ADMISSION: 03/29/2017 CHIEF COMPLAINT: Chest pain and shortness of breath. HISTORY OF PRESENT ILLNESS: This is a 66-year-old white female with a history of breast cancer and diabetes, who was seen by Dr. Bynum on 03/28/2017, in her clinic. She was complaining of some chest pain that moved to her right side around her port. Dr. Bynum felt she needed to go in to the hospital and be evaluated for that. She really did not want to do that. Her shortness of breath got worse and she presented to the ER for further evaluation. Her troponin was elevated and she is admitted for further care. She has no prior history of coronary artery disease. PAST MEDICAL HISTORY: Again, diabetes and breast cancer followed by Dr. Bynum. PAST SURGICAL HISTORY: She has had a port placement. ALLERGIES: PENICILLIN, SULFA, CLINDAMYCIN, REPORTEDLY TAGAMENT AND MORPHINE IN "LARGE DOSES." FAMILY HISTORY: Brother with KS last year. He also had diabetes. HOME MEDICATIONS: Include Lipitor 20 mg once a day, Hyzaar 50/12.5 once a day, citalopram 20 mg once a day, gabapentin 300 mg twice a day, Keppra 500 mg twice a day, Fioricet with codeine q.4 hours p.r.n. headache, Meloxicam 7.5 mg once a day, omeprazole 40 mg once a day, Actos 45 mg once a day, and Januvia 100 mg once a day. HABITS: She does not smoke. No alcohol or drugs. REVIEW OF SYSTEMS: GENERAL: No major weight changes. HEENT: No particular sinus or allergy problems. RESPIRATORY: No history of emphysema or pneumonia. CARDIAC: No history of heart disease. GASTROINTESTINAL: Has occasional dyspepsia. GENITOURINARY: No significant problems there. MUSCULOSKELETAL: No significant problems there. NEUROLOGIC: No migraine headaches. PSYCHIATRIC: No depression or melancholia. PHYSICAL EXAMINATION: VITAL SIGNS: Temperature 97.2, pulse 102, respirations 22, blood pressure 101/77. She does not appear to be in acute distress. She is awake and alert. HEENT: Grossly within normal limits. NECK: Supple. HEART: Regular rate and rhythm. LUNGS: Clear. ABDOMEN: Soft, nontender, obese. EXTREMITIES: No edema. HISTORY AND PHYSICAL [id number] DEEPTI KILGORE LABORATORY DATA: CBC with a white count 7900, hemoglobin 9.1, hematocrit 28.7 and platelets number 336,000. Basic metabolic panel is okay except BUN little elevated at 26, her creatinine is 0.7, glucose is 155. Total bilirubin low. Troponin initially 0.108 and up to 0.115. D-dimer elevated at 0.82. Urinalysis was okay. EKG normal sinus rhythm. IMAGING: Chest x-ray, hypoinflated lungs, bilateral interstitial prominence. She had a CTA of the chest with and without contrast that showed no evidence of pulmonary embolus or other acute findings in the chest. ASSESSMENT: 1. Chest pain. 2. Diabetes. 3. Breast cancer. PLAN: We will consult cardiology and rule out that. Other tests and procedures as warranted. TRANSINT:[id number] Voice Confirmation ID: [id number] DOCUMENT ID: [id number] ALVERTO CORONEL MD at 0832 CC: [id number] DICTATION DATE: 03/30/17 0845 ENDOCRINOLOGY PHYSICIAN: 03/30/17 0919 ADM IN [facility] [address] [place] [address]
[2017-03-31 09:15] LABS: FOLATE (FOLIC ACID) - SERUM 11.4 ng/mL (>3.0)
--- NOTE | 2017-03-31 09:50 | NUR ---
PATIENT BACK FROM DIRECTOR OF QUANTITATIVE RESEARCH, TR BAND TO R WRIST, NO SIGNS OF HEMATOMA. VS STABLE. SR ON MONITOR RATE OF 80. PATIENT AROUSES TO VOICE. DENIES ANY NEEDS. CPOC
--- NOTE | 2017-03-31 10:54 | NUR ---
SPOKE WITH DR PEREZ, PATIENT IS GOING BACK TO MOULDER OPERATOR AT 1300. NEW CONSENTS SIGNED. CPOC
--- NOTE | 2017-03-31 10:58 | NUR ---
Nutrition Follow Up: Pt was out of the room at the time of RD visit. Chart reviewed. Pt is eating 92% meal avg on a diabetic diet. Wt gain noted. Labs and meds reviewed. Rec continue current diet. RD following.
[2017-03-31 12:38] VITALS: BP 150/69
--- NOTE | 2017-03-31 12:57 | NUR ---
LEAVING FOR ICE CREAM MAKER BY BED.
--- NOTE | 2017-03-31 14:08 | NUR ---
BACK FROM OXYGEN EQUIPMENT PREPARER. VS WNL. RIGHT GROIN STABLE WITHOUT BLEEDING OR HEMATOMA NOTED. WILL MONITOR.
--- NOTE | 2017-03-31 15:27 | NUR ---
tr band dcd without bleeding or hematoma noted. will monitor,
--- NOTE | 2017-03-31 15:50 | NUR ---
BED REST UP. GROIN STABLE.
[2017-03-31 16:14] VITALS: BP 138/63
[2017-03-31 20:00] VITALS: BP 136/66
--- NOTE | 2017-03-31 20:05 | NUR ---
PT RESTING COMFORTABLY, EASILY ROUSABLE TO VERBAL STIMULI. CONTINUE TO MONITOR CLOSELY. BED LOW, CALL LIGHT IN REACH, SIDE RAILS X 2, HOB 20 DEGREES.
--- NOTE | 2017-03-31 23:44 | NUR ---
DURING 2100 MED PASS AND DURING MY ASSESSMENT, PT AND I WERE DISCUSSING HER REASON FOR KEPPRA. PT STATES SHE HAS HAD BRAIN SURGERY APPROX 1 YEAR AGO FOR A HEMANGIOMA THAT WAS CAUSING HER TO HAVE SEIZURES, BUT IT HAS BEEN REMOVED AND PT STATES SHE HAS NOT HAD ANY SEIZURES FOR SEVERAL MONTHS. PT STATES SHE IS ACTIVELY TAKING CHEMO FOR HER LT BREAST CANCER. PT DENIES ANY NEEDS. PTS PERIPHERAL PULSES ARE PRESENT, RIGHT GROIN WHERE SHE WAS CATHED EARLIER IS WARM, NO BRUISING, NO HEMATOMA AT INSERTION SITE. RT WRIST PULSE ALSO PRESENT, WARM, WNL. CONTINUE TO MONITOR CLOSELY.
[2017-04-01] VITALS: BP 135/66
--- NOTE | 2017-04-01 01:31 | NUR ---
PT CALLED ASKING FOR MIRALAX, STATING SHE IS HAVING ABDOMINAL CRAMPS AND ALWAYS DOES AFTER ANESTHESIA. PT STATES SHE DOES NOT HAVE ANY PROBLEMS AT HOME. I OFFERED HER A MIXTURE OF LEMON [place] SODA AND PRUNE JUICE WARMED UP. PT WAS ABLE TO DRINK IT. PT TO CALL WHEN NEEDING ANY ASSISTANCE.
[2017-04-01 04:00] VITALS: BP 140/72
--- NOTE | 2017-04-01 06:00 | NUR ---
PT RESTING COMFORTABLY, EASILY ROUSABLE TO VERBAL STIMULI, DENIES ANY NEEDS. RIGHT GROIN REMAINS SOFT, NO BLEEDING OR OOZING, TEMP IS WARM, NO BRUISING OR HEMATOMA. DRESSING REMAINS CLEAN, DRY AND INTACT. WILL CONTINUE TO MONITOR PT CLOSELY. BED LOW, CALL LIGHT IN REACH, SIDE RAILS X 2, HOB 10 DEGREES.
[2017-04-01 08:28] VITALS: BP 137/59
--- NOTE | 2017-04-01 11:00 | NUR ---
02 SAT 96% RA AFTER AMBULATION.
[2017-04-01 11:51] VITALS: BP 127/67
--- NOTE | 2017-04-01 12:01 | NUR ---
IV AND TELEMETRY DCD. DC PLANS GIVEN. UNDERSTANDING VOICED.
--- NOTE | 2017-04-01 12:25 | NUR ---
ESCORTED TO CAR BY W/C.
--- NOTE | 2017-04-12 10:07 | OP ---
PATIENT NAME: DEEPTI KILGORE MEDICAL RECORD: [id number] :54 LOCATION:D.M2 D.2114 ADMISSION DATE:03/29/17 SURGEON: DOMINIC PEREZ MD DATE OF OPERATION: 03/31/2017 PROCEDURE: Left heart cath, LV gram, coronary angiogram. MEATCUTTER: Dominic Perez MD PROCEDURE IN DETAIL: The patient was brought to cardiac catheterization lab in stable condition. The right wrist and right groin were sterilely prepped and draped. The patient had a 6-Estonian sheath placed into the right radial artery using modified Seldinger technique. We were then able to advance diagnostic catheters and intubate the left coronary and the right coronary artery respectively. We were then able to enter the LV cavity and perform left ventriculography. FINDINGS: 1. Left main is normal. 2. The LAD has mild plaquing. There appears to be a 50% stenosis in the mid LAD segment. 3. The circumflex has mild luminal irregularities and an ostial 40% stenosis. 4. The RCA is large diffusely, atherosclerotic lesions without hemodynamic significance. HEMODYNAMICS: Left ventricular ejection fraction is hyperdynamic at 70%. The diastolic pressures are mildly elevated at 18 mmHg. IMPRESSION: The patient has diffuse atherosclerotic changes with an indeterminate or an intermediate lesion in the mid LAD, appears nonhemodynamically significant, but in her clinical context, we decided to go forward with an FFR; however, her right radial artery throughout that area began to spasm considerably and we were not able to advance our guiding catheters. Therefore, the FFR could not be completed. RECOMMENDATIONS: At this point, the significance of this LAD stenosis would be helpful in determining further plans. I will go forward with the stress test to see if there is any anterior ischemia or possibly let the heparin runoff and come back and go through her groin approach and do the FFR at that point in time. TRANSINT:[id number] Voice Confirmation ID: [id number] DOCUMENT ID: [id number] 04/10/2017 Edited to correct date of operation, dmm. DOMINIC PEREZ MD at 1007 CC: [id number] DICTATION DATE: 03/31/17 0923 CREDIT REPORTER: 03/31/17 1055 DIS IN 04/01/17 [facility] [address] [place] [address]
[2017-04-14] MEDS ORDERED: JANUVIA100 MG PO (14:12)
== END 2017-04-01 12:25 | disposition home or self-care (01) ==
LOC: D.ER 19:22 → OBSVTIME 03-29 00:24 → D.M2 03-29 00:24
PROVIDERS: Family Medicine; Internal Medicine Cardiovascular Disease; ADMIT Family Medicine
DX: R07.89 Other chest pain (principal); R79.89 Other specified abnormal findings of blood chemistry; I25.10 Atherosclerotic heart disease of native coronary artery without angina pectoris; E11.9 Type 2 diabetes mellitus without complications; Z85.3 Personal history of malignant neoplasm of breast; I10 Essential (primary) hypertension

== ENCOUNTER → 2017-04-05 11:46 | Outpatient (CLI) | payer MEDICAID ==
[2017-03-29 10:14] VITALS: BMI 46.3
[~2017-04-05 11:46] MED LIST changes: +VIBRAMYCIN 100100 MG PO
== END | disposition home or self-care (01) ==
LOC: D.SP 11:00
DX: Z45.2 Encounter for adjustment and management of vascular access device (principal)

== ENCOUNTER 2017-04-17 06:52 | Day surgery (SDC) | payer MEDICAID ==
[~2017-04-17 06:52] MED LIST changes: -VIBRAMYCIN 100100 MG PO
[2017-04-17 07:22] LABS: BASOPHILS 0.4 % (0-2); EOSINOPHILS 1.3 % (0-7); HEMATOCRIT 35.3 % (36.0-48.0); HEMOGLOBIN 11.1 g/dL (12-16); IMMATURE GRANULOCYTES 0.2 % (0-5); LYMPHOCYTES 34.7 % (15-50); MCH 30.5 pg (26.0-34.0); MCHC 31.4 g/dL (31.0-37.0); MEAN PLATELET VOLUME 10.1 fL (7.4-10.4); MONOCYTES 3.8 % (2-11); NEUTROPHILS 59.6 % (40-80); PLATELET COUNT 328 10x3/uL (130-400); RBC 3.64 10x6/uL (4.00-5.40); RDW 16.3 % (11.5-14.5); WBC 8.5 10x3/uL (4.8-10.8)
[2017-04-17 07:30] LABS: APTT 24.8 SECONDS (22.8-39.4); INR 0.96 (0.85-1.17); PROTIME 12.6 SECONDS (11.6-15.0)
[2017-04-17 07:59] LABS: CALC OSMOLALITY 282 mosm/kg (275-300); CALCIUM 9.1 mg/dL (8.5-10.1); CARBON DIOXIDE 27.6 mmol/L (21.0-32.0); CHLORIDE - SERUM 100 mmol/L (98-107); CREATININE - SERUM 0.8 mg/dL (0.6-1.3); GLUCOSE 178 mg/dL (74-106); POTASSIUM - SERUM 4.7 mmol/L (3.5-5.1); SODIUM 137 mmol/L (136-145); UREA NITROGEN 26 mg/dL (7-18); eGFR NON AFRICAN AMERICAN 76 mL/min (90-120)
[2017-04-17 08:13] VITALS: BP 107/63; BMI 46.4
[2017-04-17] MEDS ORDERED: HYDROCODON-ACE1 EAC7 PO (11:50)
--- NOTE | 2017-04-17 12:14 | NUR ---
1200 - LEFT UPPER CHEST DRESSING CHANGED TO MEPILEX AG PER DR DELANEY
--- NOTE | 2017-04-17 13:06 | OP ---
PATIENT NAME: DEEPTI KILGORE MEDICAL RECORD: [id number] :54 LOCATION:D.OPS ADMISSION DATE: SURGEON: MANDY DUMAS MD DATE OF OPERATION: 04/17/2017 SURGEON: Mandy Dumas MD PREOPERATIVE DIAGNOSES: 1. Infiltrating ductal carcinoma of the left breast. 2. Nonfunctioning PowerPort. POSTOPERATIVE DIAGNOSES: 1. Infiltrating ductal carcinoma of the left breast. 2. Nonfunctioning PowerPort. PROCEDURE PERFORMED: 1. Removal of right chest wall port. 2. Placement of tunneled right subclavian chest wall port. 3. Immediate interpretation of fluoroscopy. ANESTHESIA: General. COMPLICATIONS: None. SPECIMENS: Chest wall port. Case was clean. OPERATIVE COURSE: After consent was obtained, the patient was taken to the operating room and placed in the supine position on the operating table. Next, the right chest wall was prepped and draped in typical sterile fashion. Timeout was taken to confirm the correct patient and procedure. A 20 cc of local anesthetic were injected into the right chest wall. The previous incision was opened using a 15 blade scalpel. Dissection continued to the level of the port with electrocautery. The fibrous capsule was incised and the port was removed with the catheter intact. The fibrous capsule was completely excised using electrocautery. All tissue near was completely excised until fresh tissue was encountered. At this time a right subclavian vein was accessed on the first pass with fluoroscopy and placed. The wire was advanced to the atriocaval junction. The dilator and sheath were passed over the wire in a standard Seldinger fashion under fluoroscopy. The tunneling device was then used to tunnel the catheter from the incision site to the needle stick site. The catheter was cut to length. Under fluoroscopy, the dilator and breakaway sheath removed. The catheter was advanced to the atriocaval junction and the breakaway sheath was removed. At this time, the port was accessed, blood was aspirated. It was then flushed with 5000 units of heparin and 30 cc of saline. The catheter was secured to the chest wall using 2-0 Prolene suture. The wound was copiously irrigated and suctioned. Subcutaneous tissue was closed in 2 layers to deep fascia with 3-0 Vicryl sutures, superficial fascia with 3-0 Vicryl suture, skin with 4-0 Stratafix, Mastisol and Steri-Strips. The port was then accessed. Blood was aspirated and it was flushed again with 20 cc of saline. A sterile Tegaderm dressing was placed and port was left to access and sheath. At the end of the case, all needle and instrument counts were correct. No complications occurred. The patient was extubated and transferred to the PACU in stable condition. OPERATIVE REPORT [id number] DEEPTI KILGORE TRANSINT:[id number] Voice Confirmation ID: [id number] DOCUMENT ID: [id number] MANDY DUMAS MD at 1306 CC: [id number] DICTATION DATE: 04/17/17 1147 SUBMERSIBLE PILOT: 04/17/17 1236 REG [facility] [address] [place] [address]
--- NOTE | 2017-04-17 13:30 | NUR ---
PT SITTING UP IN BED WITH HOB ELEVATED. FULL LIQUIDS TOLERATED. IV TO RIGHT WRIST D/C'D, PT TOLERATED. CATHETER INTACT. VSS. PT READYING TO GO HOME. WILL MONITOR.
--- NOTE | 2017-04-17 14:00 | NUR ---
1345-DISCHARGE INSTRUCTIONS COMPLETED. PT VERBALIZED UNDERSTANDING. PAPERWORK SIGNED. 1355- PT DISCHARGED VIA WHEELCHAIR.
== END 2017-04-17 13:55 | disposition home or self-care (01) ==
LOC: D.OPS 06:52 → D.PAN 09:15 → D.OPS 09:15
PROVIDERS: Anesthesiology
DX: T82.9XXA Unspecified complication of cardiac and vascular prosthetic device, implant and graft, initial encounter (principal); C50.912 Malignant neoplasm of unspecified site of left female breast; Z01.812 Encounter for preprocedural laboratory examination

== ENCOUNTER → 2017-04-25 15:24 | Outpatient (CLI) | payer MEDICAID ==
[2017-04-17 08:13] VITALS: BMI 46.4
[~2017-04-25 15:24] MED LIST changes: +VIBRAMYCIN 100100 MG PO
== END | disposition home or self-care (01) ==
LOC: D.RAD 15:24
DX: D70.9 Neutropenia, unspecified (principal)

== ENCOUNTER → 2017-04-25 15:59 | Outpatient (CLI) | payer MEDICAID ==
[2017-04-17 08:13] VITALS: BMI 46.4
== END | disposition home or self-care (01) ==
LOC: D.LABREF 15:59
DX: Z45.2 Encounter for adjustment and management of vascular access device (principal); J98.2 Interstitial emphysema; C50.912 Malignant neoplasm of unspecified site of left female breast

== ENCOUNTER 2017-04-28 11:49 | Inpatient (IN) | payer MEDICAID ==
[~2017-04-28] VITALS: Ht 154.9 cm; Wt 110.2 kg
[~2017-04-28 11:49] MED LIST changes: -VIBRAMYCIN 100100 MG PO
[2017-04-28 13:20] LABS: BASOPHILS 0.2 % (0-2); EOSINOPHILS 0.2 % (0-7); HEMATOCRIT 32.8 % (36.0-48.0); HEMOGLOBIN 10.7 g/dL (12-16); LYMPHOCYTES 13.4 % (15-50); MCH 30.7 pg (26.0-34.0); MCHC 32.6 g/dL (31.0-37.0); MEAN PLATELET VOLUME 10.2 fL (7.4-10.4); MONOCYTES 4.9 % (2-11); NEUTROPHILS 80.3 % (40-80); RBC 3.49 10x6/uL (4.00-5.40); RDW 16.5 % (11.5-14.5); WBC 6.1 10x3/uL (4.8-10.8)
[2017-04-28 13:21] LABS: PLATELET COUNT 221 10x3/uL (130-400)
[2017-04-28 13:35] LABS: ALBUMIN 2.7 g/dL (3.4-5.0); ANION GAP 10.2 mmol/L (8-16); BILIRUBIN - TOTAL 0.5 mg/dL (0.2-1.3); CALCIUM 8.8 mg/dL (8.5-10.1); CARBON DIOXIDE 28.3 mmol/L (21.0-32.0); POTASSIUM - SERUM 3.5 mmol/L (3.5-5.1); PROTEIN - SERUM 7.6 g/dL (6.4-8.2)
[2017-04-28 14:17] LABS: APPEARANCE SLT CLOUDY (CLEAR); BILIRUBIN NEGATIVE (NEGATIVE); COLOR DK YELLOW (YELLOW); GLUCOSE NEGATIVE (NEGATIVE); KETONE NEGATIVE (NEGATIVE); NITRITE NEGATIVE (NEGATIVE); PROTEIN 1+ mg/dL (NEGATIVE); SPECIFIC GRAVITY 1.015 (1.005-1.020)
[2017-04-28 14:18] LABS: BACTERIA MANY /hpf (NONE SEEN); EPITHELIAL CELLS 0-5 /hpf (0-5); GRANULAR CAST RARE /lpf (NONE SEEN); HYALINE CAST 0-5 /lpf (NONE SEEN); MUCUS <1+ /lpf (NONE SEEN); RED CELLS - URINE RARE /hpf (0-5); WHITE CELLS - URINE 0-5 /hpf (0-5)
--- NOTE | 2017-04-28 17:48 | NUR ---
RECEIVED TO ROOM 2218 FROM ER VIA BED. CALL LIGHT IN REACH. WILL CONTINUE WITH PLAN OF CARE.
[2017-04-28 17:52] VITALS: BP 87/60; BMI 46.0
--- NOTE | 2017-04-28 19:31 | NUR ---
NO CHANGES IN INITIAL ASSESSMENT. CALL LIGHT IN REACH. WILL CONTINUE WITH PLAN OF CARE.
[2017-04-28 20:00] VITALS: BP 129/61
--- NOTE | 2017-04-28 20:00 | NUR ---
CONSENT FORMS SIGNED AND WITNESSED.
[2017-04-29] VITALS: BP 117/60
[2017-04-29 04:00] VITALS: BP 118/55
[2017-04-29 05:44] LABS: BASOPHILS 0 % (0-2); EOSINOPHILS 0.1 % (0-7); HEMATOCRIT 30.8 % (36.0-48.0); HEMOGLOBIN 9.8 g/dL (12-16); IMMATURE GRANULOCYTES 0.3 % (0-5); LYMPHOCYTES 20.1 % (15-50); MCH 30.1 pg (26.0-34.0); MCHC 31.8 g/dL (31.0-37.0); MCV 94.5 fL (80.0-100.0); MEAN PLATELET VOLUME 10.6 fL (7.4-10.4); MONOCYTES 6.6 % (2-11); NEUTROPHILS 72.9 % (40-80); PLATELET COUNT 216 10x3/uL (130-400); RBC 3.26 10x6/uL (4.00-5.40); RDW 16.8 % (11.5-14.5); WBC 6.8 10x3/uL (4.8-10.8)
[2017-04-29 05:57] LABS: CALC OSMOLALITY 267 mosm/kg (275-300); CALCIUM 8.5 mg/dL (8.5-10.1); CARBON DIOXIDE 28.5 mmol/L (21.0-32.0); CHLORIDE - SERUM 96 mmol/L (98-107); CREATININE - SERUM 0.8 mg/dL (0.6-1.3); GLUCOSE 122 mg/dL (74-106); POTASSIUM - SERUM 3.4 mmol/L (3.5-5.1); SODIUM 132 mmol/L (136-145); UREA NITROGEN 19 mg/dL (7-18); eGFR NON AFRICAN AMERICAN 76 mL/min (90-120)
--- NOTE | 2017-04-29 07:45 | NUR ---
ASSESSMENT PER FLOW SHEET.PT WITHOUT DISTRESS.DENIES NEEDS AT PRESENT.NPO FOR SURGERY TODAY.MONITOR FOR NEEDS.CALL LIGHT IN REACH.FAMILY AT SIDE.
[2017-04-29 08:40] VITALS: BP 105/53
--- NOTE | 2017-04-29 10:45 | NUR ---
TO OR VIA BED
[2017-04-29 12:05] VITALS: Ht 154.9 cm; Wt 110.2 kg
--- NOTE | 2017-04-29 13:45 | NUR ---
BACK FROM OR VIA BED.VSS STABLE. DRESSING RIGHT CHEST CDI. MONITOR
[2017-04-29 15:44] VITALS: BP 92/40
--- NOTE | 2017-04-29 18:10 | NUR ---
REMAINS WITHOUT DISTRESS,BUT STATES FEELING TIRED THS AFTERNOON. REMAINS WITHOUT CHNAGE FROM INITIAL SHIFT ASSESSMENT.CONT PLAN OF CARE
[2017-04-29 20:00] VITALS: BP 99/54
--- NOTE | 2017-04-29 20:00 | NUR ---
PATIENT RESTING IN BED AND DENIES NEEDS AT THIS TIME. PATIENT WANTED EXTENSION CORD PLUGGED IN FROM HOME AND I EXPLAINED TO HER THAT WE CAN'T USE HER CORD FROM HOME UNLESS IT IS INSPECTED FIRST. SHE VERBALIZED UNDERSTANDING. PATIENT DENIES OTHER NEEDS AT THIS TIME. BED IN LOWEST POSITION AND CALL LIGHT WITHIN REACH. ENCOURAGED THE PATIENT TO CALL IF SHE HAS NEEDS.
[2017-04-30] VITALS: BP 124/65
[2017-04-30 04:00] VITALS: BP 103/67
[2017-04-30 05:21] LABS: BASOPHILS 0.2 % (0-2); EOSINOPHILS 0.4 % (0-7); HEMATOCRIT 28.4 % (36.0-48.0); HEMOGLOBIN 9.2 g/dL (12-16); IMMATURE GRANULOCYTES 0.4 % (0-5); LYMPHOCYTES 27.3 % (15-50); MCH 29.8 pg (26.0-34.0); MCHC 32.4 g/dL (31.0-37.0); MEAN PLATELET VOLUME 10.5 fL (7.4-10.4); MONOCYTES 9.3 % (2-11); NEUTROPHILS 62.4 % (40-80); RBC 3.09 10x6/uL (4.00-5.40); RDW 16.4 % (11.5-14.5)
[2017-04-30 05:31] LABS: MCV 91.9 fL (80.0-100.0); PLATELET COUNT 168 10x3/uL (130-400); WBC 4.9 10x3/uL (4.8-10.8)
[2017-04-30 05:56] LABS: CALC OSMOLALITY 270 mosm/kg (275-300); CALCIUM 7.5 mg/dL (8.5-10.1); CARBON DIOXIDE 25.3 mmol/L (21.0-32.0); CHLORIDE - SERUM 97 mmol/L (98-107); CREATININE - SERUM 0.6 mg/dL (0.6-1.3); GLUCOSE 126 mg/dL (74-106); POTASSIUM - SERUM 3.2 mmol/L (3.5-5.1); SODIUM 134 mmol/L (136-145); eGFR NON AFRICAN AMERICAN > 90 mL/min (90-120)
[2017-04-30 06:00] LABS: UREA NITROGEN 14 mg/dL (7-18)
--- NOTE | 2017-04-30 08:30 | NUR ---
ANSWERED CALL LIGHT. UPON ENTRANCE PT STATED THAT R CHEST PORT REMOVAL SITE WAS DRAINING. SEROSANGUINOUS DRAINAGE NOTED. PACKING AND 4X4'S CHANGED. TEGADERM APPLIED. BED LOW, CALL LIGHT IN REACH, DENIES NEEDS. CPOC.
[2017-04-30 08:33] VITALS: BP 110/64
[2017-04-30 12:16] VITALS: BP 145/70
--- NOTE | 2017-04-30 15:30 | NUR ---
PT ASLEEP IN BED WITH NO VISABLE SIGNS OF PAIN OR DISCOMFORT AT THIS TIME. BED IN LOW POSITION AND CALL LIGHT WITHIN REACH. WILL CONTINUE TO MONITOR.
[2017-04-30 16:41] VITALS: BP 144/91
[2017-04-30 19:44] VITALS: BP 103/62
--- NOTE | 2017-04-30 19:45 | NUR ---
PATIENT RESTING IN BED AND DENIES NEEDS AT THIS TIME. BED IN LOWEST POSITION AND CALL LIGHT WITHIN REACH. ENCOURAGED THE PATIENT TO CALL IF SHE HAS NEEDS.
[2017-05-01 04:00] VITALS: BP 110/69
[2017-05-01 05:47] LABS: BASOPHILS 0.2 % (0-2); EOSINOPHILS 0.9 % (0-7); HEMOGLOBIN 9.6 g/dL (12-16); IMMATURE GRANULOCYTES 0.5 % (0-5); LYMPHOCYTES 30.8 % (15-50); MCH 30.2 pg (26.0-34.0); MEAN PLATELET VOLUME 10.5 fL (7.4-10.4); MONOCYTES 10.3 % (2-11); NEUTROPHILS 57.3 % (40-80); RBC 3.18 10x6/uL (4.00-5.40); RDW 16.4 % (11.5-14.5); WBC 5.7 10x3/uL (4.8-10.8)
[2017-05-01 05:49] LABS: MCV 94.3 fL (80.0-100.0); PLATELET COUNT 232 10x3/uL (130-400)
[2017-05-01 06:08] LABS: CALC OSMOLALITY 275 mosm/kg (275-300); CALCIUM 8.7 mg/dL (8.5-10.1); CARBON DIOXIDE 30.2 mmol/L (21.0-32.0); CHLORIDE - SERUM 99 mmol/L (98-107); CREATININE - SERUM 0.6 mg/dL (0.6-1.3); GLUCOSE 147 mg/dL (74-106); POTASSIUM - SERUM 3.5 mmol/L (3.5-5.1); SODIUM 136 mmol/L (136-145); UREA NITROGEN 15 mg/dL (7-18); eGFR NON AFRICAN AMERICAN > 90 mL/min (90-120)
--- NOTE | 2017-05-01 07:47 | NUR ---
AWAKE AND ALERT. ORIENTED X3. NO C/O AT THIS TIME. LUNGS ARE CLEAR BILATERALLY, NO COUGH NOTED. SKIN IS INTACT WITHOUT REDNESS EXCEPT WOUND TO RIGHT CHEST WHICH HAS A DRY INTACT DRESSING IN PLACE. SL TO RIGHT HAND IS PATENT WITHOUT REDNESS AT INSERTION SITE. DENIES NEEDS.
[2017-05-01 08:14] VITALS: BP 128/77
--- NOTE | 2017-05-01 10:10 | NUR ---
RESTING QUIETLY IN BED. DENIES NEEDS.
[2017-05-01 11:51] VITALS: BP 105/65
--- NOTE | 2017-05-01 12:00 | NUR ---
FSBS 146. NO COVERAGE REQUIERD.
--- NOTE | 2017-05-01 13:20 | NUR ---
ATE ALMOST ALL OF LUNCH TRAY. DENIES NEEDS.
[2017-05-01 16:05] VITALS: BP 127/64
--- NOTE | 2017-05-01 17:00 | NUR ---
FSBS 143. NO ACTION.
--- NOTE | 2017-05-01 18:46 | NUR ---
ATE ALL OF SUPPER SHE WANTED. DENIES NEEDS. NO CHANGES NOTED.
[2017-05-01 20:00] VITALS: BP 132/74
[2017-05-01] MEDS ORDERED: VIBRAMYCIN 100100 MG PO (20:01)
--- NOTE | 2017-05-01 22:30 | NUR ---
PATIENT REFUSED MIDNIGHT BLOOD GLUCOSE AND VITALS
[2017-05-02 04:00] VITALS: BP 135/75
[2017-05-02 06:25] LABS: CALC OSMOLALITY 271 mosm/kg (275-300); CALCIUM 8.5 mg/dL (8.5-10.1); CARBON DIOXIDE 31.7 mmol/L (21.0-32.0); CHLORIDE - SERUM 97 mmol/L (98-107); CREATININE - SERUM 0.5 mg/dL (0.6-1.3); GLUCOSE 144 mg/dL (74-106); POTASSIUM - SERUM 3.7 mmol/L (3.5-5.1); SODIUM 134 mmol/L (136-145); UREA NITROGEN 15 mg/dL (7-18); eGFR NON AFRICAN AMERICAN > 90 mL/min (90-120)
[2017-05-02 06:40] LABS: BASOPHILS 0.3 % (0-2); EOSINOPHILS 0.7 % (0-7); HEMATOCRIT 29.9 % (36.0-48.0); HEMOGLOBIN 9.6 g/dL (12-16); LYMPHOCYTES 36.6 % (15-50); MCH 29.6 pg (26.0-34.0); MCHC 32.1 g/dL (31.0-37.0); MEAN PLATELET VOLUME 10.7 fL (7.4-10.4); MONOCYTES 9.6 % (2-11); NEUTROPHILS 51.8 % (40-80); PLATELET COUNT 276 10x3/uL (130-400); RBC 3.24 10x6/uL (4.00-5.40); RDW 16.5 % (11.5-14.5); WBC 6.7 10x3/uL (4.8-10.8)
[2017-05-02 06:47] LABS: MCV 92.3 fL (80.0-100.0)
--- NOTE | 2017-05-02 07:58 | NUR ---
AWAKE AND ALERT. ORIENTED X3. NO C/O THIS AM. LUNGS ARE CLEAR BILATERALLY, NO COUGH NOTED. SKIN IS INTACT WITHOUT REDNESS EXCEPT WOUND TO RIGHT CHEST WALL WHICH HAS A DRY INTACT DRESSING IN PLACE. SL TO RIGHT HAND IS PATENT WITHOUT REDNESS AT INSERTION SITE. DENIES NEEDS.
[2017-05-02 08:20] VITALS: BP 120/90
--- NOTE | 2017-05-02 09:40 | CN ---
PATIENT NAME:DEEPTI KILGORE MEDICAL RECORD: [id number] : 54 LOCATION:D.MS [place] ADMIT DATE: 04/28/17 ACCOUNT: [id number] CONSULTING PHYSICIAN: SHASHANK OBANDO MD REFERRING PHYSICIAN: DRAGAN HENRY MD DATE OF CONSULTATION: 04/28/2017 CHIEF COMPLAINT: Infection. HISTORY OF PRESENT ILLNESS: The patient has another port infection. You can compressive around the port incision and pus comes out through the incision site. She states 2 other port infections. The port was recently placed. I am going to plan for removal of the port in the operating room tomorrow. The patient is not n.p.o. I saw the patient in the Emergency Room. The entire examination was performed in the presence of a female nurse. The patient is currently undergoing chemotherapy. Palpation aggravates. Nothing alleviates. Symptoms are moderate in intensity. The risks, possible complications and alternatives to removal of infected port were explained to the patient. She elects to proceed. This is a patient of Dr. MOISÉS Davis. I am hone operator for him. This is a consultation note addendum. For the typed portion of the consultation note, please see the chart. This would include the past medical and surgical history, current medications, allergies, social history as well as family history. REVIEW OF SYSTEMS: Positive for nausea, no vomiting. Positive for fever, no chills. No chest pain, no shortness of breath. Positive for fatigue. The review of systems is negative other than as is described above. PHYSICAL EXAMINATION: GENERAL: The patient appears acutely ill. Also appears chronically ill. VITAL SIGNS: Reviewed. The entire physical examination was performed in the presence of a female nurse. HEAD: External ears appear normal. EYES: Extraocular movements are intact. NECK: Trachea is midline. CHEST: No intercostal retractions. PULMONARY: Nonlabored, no stridor. ABDOMEN: No peritonitis with movement. INTEGUMENT: There is a dry eschar, I think from a prior port site in the right infraclavicular area. The port site that is infected at this time is caudad to the eschar. PSYCHIATRIC: Normal affect. NEUROLOGIC: Answers questions appropriately. BACK: No thoracic kyphosis. LYMPHATICS: No lymphangitic streaking of the exposed extremities. IMPRESSION: Infected port in a patient who has vascular access peripherally. PLAN: Removal of infected port in the operating room. CONSULT REPORT [id number] DEEPTI KILGORE TRANSINT:[id number] Voice Confirmation ID: [id number] DOCUMENT ID: [id number] SHASHANK OBANDO MD at 0940 CC: DRAGAN HENRY MD and MELANI LANGLEY MD [id number] DICTATION DATE: 04/29/17 1300 SOILED LINEN DISTRIBUTOR: 04/29/17 1407 ADM IN [id number] [place] [address]
--- NOTE | 2017-05-02 09:40 | OP ---
PATIENT NAME: DEEPTI KILGORE MEDICAL RECORD: [id number] :54 LOCATION:D.MS [place]14 ADMISSION DATE:04/28/17 SURGEON: SHASHANK OBANDO MD DATE OF OPERATION: 04/29/2017 PREOPERATIVE DIAGNOSIS: Infected subcutaneous port. POSTOPERATIVE DIAGNOSIS: Infected subcutaneous port. PROCEDURE: Removal of infected subcutaneous port and vascular catheter with packing of the wound. SURGEON: Shashank Obando MD HOUSEKEEPER CAREGIVER: None. BLOOD LOSS: Minimal. ANESTHESIA: General. COMPLICATIONS: None. The risks, possible complications, and alternatives to the procedure were explained to the patient. She elected to proceed. OPERATIVE COURSE: The patient was conveyed to the operating room electively on 04/29/2017. General anesthesia was induced by the anesthesia staff. The right chest was sterilely prepped and draped. I was able to press on the skin around the incision and pus came out through the incision. This was cultured. Skin and subcutaneous sutures were cut. Some deep tissues were removed as well. The port was grasped and removed in its entirety. The port had not been in place long enough to have a mature fibrous tract into the vascular system, so she is at somewhat of a risk for an air embolism. I put my finger along with subcutaneous tract in order to avoid an air embolism. I irrigated in the port pocket with hydrogen peroxide. We then packed the port with 2 of the 2-inch Kerlix rolls that had been tied together and soaked in hydrogen peroxide. An occlusive dressing was then applied over this. The patient was then extubated and conveyed to the post-anesthesia care unit, where she was in stable condition. TRANSINT:[id number] Voice Confirmation ID: [id number] DOCUMENT ID: [id number] SHASHANK OBANDO MD at 0940 CC: DRAGAN HENRY MD and MELANI LANGLEY MD [id number] DICTATION DATE: 04/29/17 1310 DIRECTOR OF SCOUT WORK: 04/29/17 1416 ADM IN [id number] [place] [address]
--- NOTE | 2017-05-02 10:45 | NUR ---
UP TO SHOWER WITH FAMILY'S ASSISTANCE. REQUESTED AND GIVEN 50 MG DEMEROL SLOW IVP FOR C/O PAIN LEVEL 7. DISCHARGED TO HOME WITH FRIEND AMBULATORY. DISCHARGE INSTRUCTIONS GIVEN BOTH VERBALLY AND WRITTEN. ALL QUESTIONS ANSWERED. PATIENT AND FRIEND VERBALIZED UNDERSTANDING OF SAME. NEEDED PRESCRIPTIONS GIVEN TO PATIENT. ALL BELONGINGS WITH PATIENT.
== END 2017-05-02 11:00 | disposition home or self-care (01) | DRG 316 ==
LOC: D.ER 11:49 → D.MS 15:33
PROVIDERS: Emergency Medicine; Physician Assistant; Surgery; ADMIT Family Medicine
PROC: 0JPT03Z Removal of Infusion Device from Trunk Subcutaneous Tissue and Fascia, Open Approach (ICD-10-PCS; principal; 2017-04-29 10:30)
DX: T80.211A Bloodstream infection due to central venous catheter, initial encounter (principal); C50.912 Malignant neoplasm of unspecified site of left female breast; E11.9 Type 2 diabetes mellitus without complications; I10 Essential (primary) hypertension; Z88.1 Allergy status to other antibiotic agents; E87.6 Hypokalemia; B95.61 Methicillin susceptible Staphylococcus aureus infection as the cause of diseases classified elsewhere

== ENCOUNTER → 2017-05-05 10:22 | Outpatient (CLI) | payer MEDICAID ==
[2017-04-29 12:05] VITALS: BMI 45.9
[~2017-05-05 10:22] MED LIST changes: +VIBRAMYCIN 100100 MG PO
== END | disposition home or self-care (01) ==
LOC: D.US 10:22
DX: M79.601 Pain in right arm (principal); R22.31 Localized swelling, mass and lump, right upper limb

== ENCOUNTER → 2017-05-30 13:49 | Outpatient (CLI) | payer MEDICAID ==
[2017-04-29 12:05] VITALS: BMI 45.9
--- NOTE | 2017-05-30 14:50 | NUR ---
Called to outpatient for PICC placement. Upon interviewing patient, patient states total left mastectomy in past and now with right upper arm DVT secondary to IV infiltration. Dr. Bynum's office called, will place peripheral IV. 22 gauge inserted in right upper arm and saline lock secured for chemo tomorrow. Alice Escamilla RN
== END | disposition home or self-care (01) ==
LOC: D.OPS 13:49
DX: C50.912 Malignant neoplasm of unspecified site of left female breast (principal)

== ENCOUNTER 2017-10-04 12:50 | Inpatient (IN) | payer MEDICARE, MEDICAID ==
[~2017-10-04] VITALS: Ht 157.5 cm; Wt 124.5 kg
--- NOTE | ~2017-10-04 | HP ---
PATIENT: DEEPTI KILGORE MEDICAL RECORD: [id number] ACCOUNT: [id number] LOCATION:[address] : [birth year] ADMISSION DATE: 10/04/17 HISTORY AND PHYSICAL EXAMINATION DATE OF ADMISSION: 10/04/2017 CHIEF COMPLAINT: Shortness of breath. HISTORY OF PRESENT ILLNESS: This is a 67-year-old female with multiple medical problems, has had worsening shortness of breath over the last few days, but really got worse yesterday. She has shortness of breath just walking from her chair to the bathroom. In the ED, on room air, her O2 sat would drop down to 85% just walking a few feet. Her O2 sat would go back quickly to 96% on oxygen. She is admitted for further evaluation of this. PAST MEDICAL HISTORY: She has diabetes, hypertension, high cholesterol, reflux, depression, meningioma, breast cancer treated by Dr. Bynum and just finishing chemo about 6 weeks ago. She has an upper extremity DVT. PAST SURGICAL HISTORY: Hysterectomy, hernia repair, left knee surgery, right carpal tunnel repair, right heel spur and gastrocnemius muscle resection in 2004, resection of meningioma by Dr. Donnelly in 2016. She has had mastectomy. She has had several port placements. HOME MEDICATIONS: Please see MAR for this. ALLERGIES: DOXYCYCLINE, PENICILLIN, SULFA, CLINDAMYCIN. HABITS: She states she has never smoked. No alcohol or drugs. FAMILY HISTORY: Brother with GA and diabetes. REVIEW OF SYSTEMS: GENERAL: No major weight change. HEENT: No sinus or allergy problems. RESPIRATORY: No diagnosis of emphysema or pneumonia. CARDIAC: No known history of heart disease. GASTROINTESTINAL: Occasional dyspepsia. GENITOURINARY: No significant problems. MUSCULOSKELETAL: No significant problems. NEUROLOGIC: No migraine headaches or seizures. PSYCHIATRIC: No depression or melancholia. PHYSICAL EXAMINATION: VITAL SIGNS: Temperature 97.3, pulse 76, respirations 20, blood pressure 183/82, O2 sat 97% on 2 liters. GENERAL: She is awake, alert, sitting in a chair, does not appear in acute distress at this time. HEENT: Grossly within normal limits. NECK: Supple. No JVD or bruit. HEART: Regular rate and rhythm. LUNGS: With a few wheezes bilaterally. No rales. ABDOMEN: Soft, flat, nontender. EXTREMITIES: Trace if any edema. HISTORY AND PHYSICAL [id number] DEEPTI KILGORE [facility] DATA: CBC with a white count of 10,900, hemoglobin 9.6, hematocrit 30.4, platelets 274,000. INR 1.02. D-dimer normal at 0.37. Basic metabolic panel is all normal. Liver functions are all normal. ProBNP 731. CK 35, MB 0.1, troponin less than 0.017. Chest x-ray was read as no acute process is seen. Stable mild cardiomegaly compared to previous x-ray on 04/28/2017. ASSESSMENT: 1. Hypoxia of uncertain etiology. 2. Wheezing. 3. Recent breast cancer, completed chemotherapy by Dr. Bynum. 4. Diabetes. 5. Hypertension. PLAN: Oxygen, updrafts, monitor diabetes, check echocardiogram. D-dimer was negative. Other tests or procedures as warranted. May consider pulmonary consultation. TRANSINT:[id number] Voice Confirmation ID: [id number] DOCUMENT ID: [id number] ALVERTO CORONEL MD at 1308 CC: [id number] DICTATION DATE: 10/05/1714 CAR WORKER HELPER: 10/05/17 0056 ADM IN [facility] [address] [id number]
--- NOTE | ~2017-10-04 | EC ---
PATIENT:DEEPTI KILGORE DATE OF SERVICE: 10/05/17 SEX: F MEDICAL RECORD: [id number] DATE OF : 54 LOCATION:D.M2 D.210 AGE OF PATIENT: 67 ADMISSION DATE: 10/05/17 REFERRING PHYSICIAN: INTERPRETING PHYSICIAN: JANINA ROCK MD ECHOCARDIOGRAM REPORT ECHO CHARGES 5 ECHO LIMITED Date: 10/08 1 DOPPLER ECHO COLOR FLOW 2 DOPPLER ECHO PULSE CLINICAL DIAGNOSIS: HYPOXIA ECHOCARDIOGRAPHIC MEASUREMENTS (adult normal given) AC root (d.<3.7cm) 0 cm LV Septum d (<1.2 cm> 0 cm Valve Excursion 0 cm LV Septum (systole) 0 cm Left Atria (s.<4.0cm> 0 cm LVPW d(<1.2cm) 0 cm RV (d.<2.3cm) 0 cm LVPW (sytole) 0 cm LV diastole(<5.6CM) 0 cm MV E-F(>70mm/sec) 0 cm LV systole 0 cm LVOT Diameter 1.9 cm MV exc.(>10mm) 0 cm Est.ejection fraction (50-75%) 0 % DOPPLER: LVIT 0 cm/sec A 0 cm/sec E 0 cm/sec LA 0 cm/sec RVSP 63.2 mmHg LVOT 127 cm/sec AOP1/2T 0 m/s Asc. Ao 267 cm/sec RVOT 0 cm/sec RA 0 cm/sec PA 0 cm/sec AV Gradient Peak 29.0 mmHg AV Mean 18.4 mmHg AV Area 1.2 cm MV Gradient Peak 0 mmHg MV Mean 0 mmHg MV Area 0 cm COMMENTS: LIMITED ECHO WITH BUBBLE STUDY COMPLETE ECHO DONE ON 10/05/17 Galvanizing Pot Runner: 1 TOMAS SPICEROE Web Development Director: 3 Dr. Kiran TAPE# PACS Pericardial Effusion N DATE OF SERVICE: PROCEDURE: Limited echo with bubble study. Adequate 2D, color flow, limited study. Grossly LVH appears present. LV internal dimensions are normal. Wall motion is normal. EF is greater than 55%. Aortic valve is calcified with restriction of leaflet motion. Peak gradient 29 mmHg. Moderate . Left atrium grossly appears normal. Mitral valve is thickened. [id number] MR. Right-sided ECHOCARDIOGRAM REPORT [id number] DEEPTI KILGORE chambers appear upper limits of normal, mildly dilated. Moderate TR. PA systolic pressure estimated greater than or equal to 63 mmHg per the continuity equation. Bubble study is completed, this shows no evidence of ASD or VSD. TRANSINT:[id number] Voice Confirmation ID: [id number] DOCUMENT ID: [id number] JANINA ROCK MD at 1337 CC: [id number] DICTATION DATE: 10/09/17 1041 ENGINEERING ASSOCIATE: 10/09/17 1213 DIS IN 10/08/17 [facility] [address] [place] [address]
[2017-10-04 13:34] LABS: BASOPHILS 0.1 % (0-2); EOSINOPHILS 0.6 % (0-7); HEMATOCRIT 30.4 % (36.0-48.0); HEMOGLOBIN 9.6 g/dL (12-16); IMMATURE GRANULOCYTES 0.3 % (0-5); LYMPHOCYTES 24.8 % (15-50); MCH 28.2 pg (26.0-34.0); MCHC 31.6 g/dL (31.0-37.0); MCV 89.1 fL (80.0-100.0); MEAN PLATELET VOLUME 9.8 fL (7.4-10.4); MONOCYTES 4.6 % (2-11); NEUTROPHILS 69.6 % (40-80); PLATELET COUNT 274 10x3/uL (130-400); RBC 3.41 10x6/uL (4.00-5.40); RDW 16.1 % (11.5-14.5); WBC 10.9 10x3/uL (4.8-10.8)
[2017-10-04 13:51] LABS: INR 1.02 (0.85-1.17)
[2017-10-04 13:53] LABS: APTT 25.1 SECONDS (22.8-39.4)
[2017-10-04 13:54] LABS: D-DIMER-QUANTITATIVE 0.37 ug/mLFEU (0.20-0.54)
[2017-10-04 13:57] LABS: ALBUMIN 2.8 g/dL (3.4-5.0); ALKALINE PHOSPHATASE 74 U/L (46-116); ALT (SGPT) 13 U/L (10-68); BILIRUBIN - TOTAL 0.17 mg/dL (0.2-1.3); CALC OSMOLALITY 282 mosm/kg (275-300); CALCIUM 8.5 mg/dL (8.5-10.1); CARBON DIOXIDE 28.3 mmol/L (21.0-32.0); CHLORIDE - SERUM 103 mmol/L (98-107); CREATININE - SERUM 0.6 mg/dL (0.6-1.3); GLUCOSE 126 mg/dL (74-106); POTASSIUM - SERUM 3.9 mmol/L (3.5-5.1); PROTEIN - SERUM 7.4 g/dL (6.4-8.2); SODIUM 139 mmol/L (136-145); UREA NITROGEN 20 mg/dL (7-18); eGFR NON AFRICAN AMERICAN > 90 mL/min (90-120)
[2017-10-04 14:07] LABS: CKMB 0.1 U/L (0.0-3.6); CREATINE KINASE 29 UL (21-215); PRO BNP 731 pg/mL (0-125); TROPONIN-I 0.018 ng/mL (0.000-0.060)
[2017-10-04 17:13] LABS: CKMB 0.1 U/L (0.0-3.6); CREATINE KINASE 35 UL (21-215)
[2017-10-04 17:16] LABS: TROPONIN-I < 0.017 ng/mL (0.000-0.060)
[2017-10-04 20:54] VITALS: BP 183/82
[2017-10-04] MEDS ORDERED: GLIPIZIDE10 MG PO (22:46)
[2017-10-04] MEDS ORDERED: ELIQUIS5 MG PO (22:52)
[2017-10-04] MEDS ORDERED: FEMARA2.5 MG PO (22:53)
[2017-10-04 23:52] LABS: CKMB 0.4 U/L (0.0-3.6); CREATINE KINASE 43 UL (21-215); TROPONIN-I < 0.017 ng/mL (0.000-0.060)
[2017-10-05 01:59] VITALS: BP 147/84
[2017-10-05 05:57] VITALS: BP 133/75
[2017-10-05 06:09] LABS: BASOPHILS 0 % (0-2); EOSINOPHILS 0 % (0-7); HEMATOCRIT 34.4 % (36.0-48.0); HEMOGLOBIN 10.8 g/dL (12-16); IMMATURE GRANULOCYTES 0.3 % (0-5); LYMPHOCYTES 13.6 % (15-50); MCH 27.8 pg (26.0-34.0); MCHC 31.4 g/dL (31.0-37.0); MCV 88.7 fL (80.0-100.0); MEAN PLATELET VOLUME 10.1 fL (7.4-10.4); MONOCYTES 0.6 % (2-11); NEUTROPHILS 85.5 % (40-80); PLATELET COUNT 350 10x3/uL (130-400); RBC 3.88 10x6/uL (4.00-5.40); RDW 15.8 % (11.5-14.5); WBC 12.9 10x3/uL (4.8-10.8)
[2017-10-05 06:45] LABS: ALKALINE PHOSPHATASE 80 U/L (46-116); ALT (SGPT) 13 U/L (10-68); BILIRUBIN - TOTAL 0.21 mg/dL (0.2-1.3); CALCIUM 8.9 mg/dL (8.5-10.1); CARBON DIOXIDE 32.4 mmol/L (21.0-32.0); CHLORIDE - SERUM 99 mmol/L (98-107); CKMB 0.2 U/L (0.0-3.6); CREATINE KINASE 38 UL (21-215); CREATININE - SERUM 0.7 mg/dL (0.6-1.3); PROTEIN - SERUM 8.2 g/dL (6.4-8.2); SODIUM 139 mmol/L (136-145); eGFR NON AFRICAN AMERICAN 89 mL/min (90-120)
[2017-10-05 06:49] LABS: CALC OSMOLALITY 287 mosm/kg (275-300); GLUCOSE 192 mg/dL (74-106); TROPONIN-I < 0.017 ng/mL (0.000-0.060); UREA NITROGEN 26 mg/dL (7-18)
[2017-10-05 07:00] VITALS: BP 155/87
[2017-10-05 12:43] VITALS: Ht 157.5 cm; Wt 124.5 kg
[2017-10-05 13:38] VITALS: BP 109/48
[2017-10-05 17:12] VITALS: BP 119/52
[2017-10-05 20:00] VITALS: BP 116/61
[2017-10-06 01:00] VITALS: BP 145/75
[2017-10-06 04:30] VITALS: BP 131/67
[2017-10-06 08:59] VITALS: BP 133/78
[2017-10-06 12:00] VITALS: BP 140/78
[2017-10-06 16:50] VITALS: BP 134/58
[2017-10-06 20:00] VITALS: BP 137/74
[2017-10-07 01:00] VITALS: BP 128/61
[2017-10-07 05:30] VITALS: BP 142/78
[2017-10-07 08:54] VITALS: BP 149/74
[2017-10-07 12:33] VITALS: BP 122/58
[2017-10-07 20:00] VITALS: BP 125/62
[2017-10-08 01:00] VITALS: BP 145/74
[2017-10-08 06:11] VITALS: BP 148/70
[2017-10-08 09:04] VITALS: BP 137/58
[2017-10-08 11:35] VITALS: BP 114/52
[2017-10-08] MEDS ORDERED: SINGULAIR10 MG PO (11:37)
[2017-10-08] MEDS ORDERED: MEDROL DOSE PACK4 MG PO (11:38)
[2017-10-08 15:36] VITALS: BP 132/61
[2017-10-08] MEDS ORDERED: IPRAT-ALBUT 0.5-3 ML UPD (15:38)
[2017-10-09 13:15] LABS: IMMUNOGLOBULIN A 432 mg/dL (87-352); IMMUNOGLOBULIN G 1299 mg/dL (700-1600)
[2017-10-13 20:08] LABS: IMMUNOGLOBULIN E 39 IU/mL (0-100)
== END 2017-10-08 18:19 | disposition home or self-care (01) | DRG 189 ==
LOC: D.ER 12:50 → D.EDHOLD 16:33 → OBSVTIME 16:33 → D.M2 16:33
PROVIDERS: Family Medicine; Internal Medicine Pulmonary Disease
DX: J96.01 Acute respiratory failure with hypoxia (principal); I50.30 Unspecified diastolic (congestive) heart failure; J98.11 Atelectasis; J45.909 Unspecified asthma, uncomplicated; F32.9 Major depressive disorder, single episode, unspecified; E78.00 Pure hypercholesterolemia, unspecified; G47.33 Obstructive sleep apnea (adult) (pediatric); I27.20 Pulmonary hypertension, unspecified; I11.0 Hypertensive heart disease with heart failure; Z85.3 Personal history of malignant neoplasm of breast; K21.9 Gastro-esophageal reflux disease without esophagitis; E11.9 Type 2 diabetes mellitus without complications; D64.9 Anemia, unspecified; I08.1 Rheumatic disorders of both mitral and tricuspid valves; T17.900A Unspecified foreign body in respiratory tract, part unspecified causing asphyxiation, initial encounter

== ENCOUNTER → 2018-05-09 16:46 | Outpatient (CLI) | payer OTHER ==
[2017-10-05 12:43] VITALS: BMI 47.6
[~2018-05-09 16:46] MED LIST changes: +ELIQUIS5 MG PO; +FEMARA2.5 MG PO; +GLIPIZIDE10 MG PO; +IPRAT-ALBUT 0.5-3 ML UPD; +MEDROL DOSE PACK4 MG PO; +SINGULAIR10 MG PO
== END | disposition home or self-care (01) ==
LOC: D.MAMMO 09:00
DX: Z85.3 Personal history of malignant neoplasm of breast (principal); Z90.12 Acquired absence of left breast and nipple

== ENCOUNTER → 2018-05-23 12:09 | Outpatient (CLI) | payer OTHER ==
[2017-10-05 12:43] VITALS: BMI 47.6
== END | disposition home or self-care (01) ==
LOC: D.US 12:09
DX: N63.11 Unspecified lump in the right breast, upper outer quadrant (principal)

== ENCOUNTER → 2018-11-16 20:09 | Outpatient (CLI) | payer OTHER ==
[2017-10-05 12:43] VITALS: BMI 47.6
== END | disposition home or self-care (01) ==
LOC: D.MAMMO 10-17 13:30
PROVIDERS: ATTEND Family Medicine
DX: R92.8 Other abnormal and inconclusive findings on diagnostic imaging of breast (principal)

== ENCOUNTER 2019-01-30 19:29 | Emergency (ER) | payer OTHER ==
[~2019-01-30] VITALS: Ht 157.5 cm; Wt 108.2 kg
[2019-01-30 19:39] VITALS: Ht 157.5 cm; Wt 108.2 kg
[2019-01-30 21:30] LABS: BASOPHILS 0.2 % (0-2); EOSINOPHILS 0.9 % (0-7); HEMATOCRIT 35.3 % (36.0-48.0); HEMOGLOBIN 11.8 g/dL (12-16); IMMATURE GRANULOCYTES 0.3 % (0-5); LYMPHOCYTES 43.2 % (15-50); MCH 28.4 pg (26.0-34.0); MCHC 33.4 g/dL (31.0-37.0); MCV 85.1 fL (80.0-100.0); MEAN PLATELET VOLUME 10.4 fL (7.4-10.4); MONOCYTES 6.2 % (2-11); NEUTROPHILS 49.2 % (40-80); PLATELET COUNT 294 10x3/uL (130-400); RBC 4.15 10x6/uL (4.00-5.40); RDW 14.4 % (11.5-14.5); WBC 9.9 10x3/uL (4.8-10.8)
[2019-01-30 21:59] VITALS: BP 124/57
== END 2019-01-30 21:59 | disposition home or self-care (01) ==
LOC: D.ER 19:29
PROVIDERS: Family Medicine
DX: S20.219A Contusion of unspecified front wall of thorax, initial encounter (principal); W19.XXXA Unspecified fall, initial encounter; I10 Essential (primary) hypertension; F32.9 Major depressive disorder, single episode, unspecified

== ENCOUNTER 2019-03-31 09:35 | Emergency (ER) | payer OTHER ==
[~2019-03-31] VITALS: Ht 157.5 cm; Wt 109.1 kg
[2019-03-31 09:46] VITALS: Ht 157.5 cm; Wt 109.1 kg
[2019-03-31 10:18] LABS: BASOPHILS 0.2 % (0-2); EOSINOPHILS 1.6 % (0-7); HEMATOCRIT 34.1 % (36.0-48.0); HEMOGLOBIN 10.8 g/dL (12-16); IMMATURE GRANULOCYTES 0.3 % (0-5); LYMPHOCYTES 27.2 % (15-50); MCH 29.5 pg (26.0-34.0); MCHC 31.7 g/dL (31.0-37.0); MCV 93.2 fL (80.0-100.0); NEUTROPHILS 65.7 % (40-80); PLATELET COUNT 304 10x3/uL (130-400); RBC 3.66 10x6/uL (4.00-5.40); RDW 14.4 % (11.5-14.5); WBC 10.1 10x3/uL (4.8-10.8)
[2019-03-31 10:46] LABS: ALBUMIN 3.1 g/dL (3.4-5.0); ALKALINE PHOSPHATASE 93 U/L (46-116); ALT (SGPT) 19 U/L (10-68); BILIRUBIN - TOTAL 0.46 mg/dL (0.2-1.3); CALC OSMOLALITY 277 mosm/kg (275-300); CALCIUM 8.7 mg/dL (8.5-10.1); CARBON DIOXIDE 29.5 mmol/L (21.0-32.0); CHLORIDE - SERUM 103 mmol/L (98-107); CREATININE - SERUM 0.6 mg/dL (0.6-1.3); POTASSIUM - SERUM 3.9 mmol/L (3.5-5.1); PROTEIN - SERUM 7.7 g/dL (6.4-8.2); SODIUM 138 mmol/L (136-145); UREA NITROGEN 13 mg/dL (7-18); eGFR NON AFRICAN AMERICAN > 90 mL/min (90-120)
[2019-03-31 10:47] LABS: GLUCOSE 131 mg/dL (74-106)
[2019-03-31 10:55] LABS: PRO BNP 1147 pg/mL (0-125)
[2019-03-31] MEDS ORDERED: OMNICEF300 MG PO (12:11)
[2019-03-31] MEDS ORDERED: ALBUTEROL SULF8.5 GM INH (12:11)
[2019-03-31 12:19] VITALS: BP 134/80
== END 2019-03-31 12:19 | disposition home or self-care (01) ==
LOC: D.ER 09:35
PROVIDERS: Emergency Medicine
DX: R50.9 Fever, unspecified (principal); E11.9 Type 2 diabetes mellitus without complications; R05 Cough; I10 Essential (primary) hypertension

== ENCOUNTER 2019-07-05 09:00 | Outpatient (CLI) | payer OTHER ==
[2019-03-31 09:46] VITALS: BMI 44.0
[~2019-07-05 09:00] MED LIST changes: +ALBUTEROL SULF8.5 GM INH; +OMNICEF300 MG PO
== END 2019-07-05 10:00 | disposition home or self-care (01) ==
LOC: D.MAMMO 09:00
PROVIDERS: ATTEND Family Medicine
DX: Z85.3 Personal history of malignant neoplasm of breast (principal)

== ENCOUNTER 2020-01-24 12:55 | Emergency (ER) | payer OTHER ==
[~2020-01-24] VITALS: Ht 157.5 cm; Wt 128.2 kg
[2020-01-24 13:23] VITALS: Ht 157.5 cm; Wt 128.2 kg
[2020-01-24 15:50] LABS: BASOPHILS 0.2 % (0-2); EOSINOPHILS 0.8 % (0-7); HEMATOCRIT 38.5 % (36.0-48.0); HEMOGLOBIN 11.8 g/dL (12-16); IMMATURE GRANULOCYTES 0.5 % (0-5); LYMPHOCYTES 31.2 % (15-50); MCHC 30.6 g/dL (31.0-37.0); MCV 94.6 fL (80.0-100.0); MEAN PLATELET VOLUME 10.7 fL (7.4-10.4); MONOCYTES 6.9 % (2-11); NEUTROPHILS 60.4 % (40-80); PLATELET COUNT 249 10x3/uL (130-400); RBC 4.07 10x6/uL (4.00-5.40); RDW 14.7 % (11.5-14.5); WBC 11.1 10x3/uL (4.8-10.8)
[2020-01-24 16:00] LABS: CALC OSMOLALITY 278 mosm/kg (275-300); CALCIUM 8.9 mg/dL (8.5-10.1); CARBON DIOXIDE 35.4 mmol/L (21.0-32.0); CHLORIDE - SERUM 100 mmol/L (98-107); CREATININE - SERUM 0.5 mg/dL (0.6-1.3); POTASSIUM - SERUM 4.5 mmol/L (3.5-5.1); SODIUM 139 mmol/L (136-145); UREA NITROGEN 18 mg/dL (7-18); eGFR NON AFRICAN AMERICAN > 90 mL/min (90-120)
[2020-01-24 16:02] LABS: GLUCOSE 82 mg/dL (74-106)
[2020-01-24 16:16] LABS: ALBUMIN 3.1 g/dL (3.4-5.0); ALKALINE PHOSPHATASE 72 U/L (30-120); ALT (SGPT) 16 U/L (10-68); BILIRUBIN - TOTAL 0.32 mg/dL (0.2-1.3); CKMB 0.9 U/L (0.0-3.6); CREATINE KINASE 48 UL (21-215); PRO BNP 2006 pg/mL (0-125); PROTEIN - SERUM 7.3 g/dL (6.4-8.2)
[2020-01-24 16:18] LABS: TROPONIN-I < 0.017 ng/mL (0.000-0.060)
[2020-01-24 16:41] LABS: BACTERIA FEW /hpf (NEGATIVE); BILIRUBIN NEGATIVE (NEGATIVE); EPITHELIAL CELLS 0-5 /hpf (0-5); GLUCOSE NEGATIVE (NEGATIVE); KETONE NEGATIVE (NEGATIVE); NITRITE NEGATIVE (NEGATIVE); RED CELLS - URINE NONE SEEN /hpf (0-5); UROBILINOGEN NORMAL (NORMAL); WHITE CELLS - URINE 0-5 /hpf (NEGATIVE)
[2020-01-24 16:57] LABS: INR 1.03 (0.85-1.17); PROTIME 13.5 SECONDS (11.6-15.0)
[2020-01-24 16:58] LABS: D-DIMER-QUANTITATIVE 0.63 ug/mLFEU (0.20-0.54)
[2020-01-24] MEDS ORDERED: FUROSEMIDE20 MG PO (20:27)
[2020-01-24] MEDS ORDERED: K-TAB10 MEQ PO (20:27)
[2020-01-24 21:05] VITALS: BP 148/83
== END 2020-01-24 21:05 | disposition home or self-care (01) ==
LOC: D.ER 12:55
PROVIDERS: Emergency Medicine
DX: R06.02 Shortness of breath (principal); R05 Cough; R53.1 Weakness; E11.9 Type 2 diabetes mellitus without complications; I10 Essential (primary) hypertension; Z79.84 Long term (current) use of oral hypoglycemic drugs